=== PATIENT | female | born 1940 | race Caucasian/White ===

== ENCOUNTER → 2016-05-18 | Day surgery (SDC) | payer OTHER, MEDICARE ==
[2016-05-08 07:55] VITALS: Ht 163.8 cm; Wt 72.7 kg
[~2016-05-18] VITALS: Ht 163.8 cm; Wt 72.7 kg
[~2016-05-18] MED LIST: 500ML BSS 0.3ML EPI 1:1000PF IRRIG ONE; ACETAMINOPHEN 325 MG TAB PO PRN; AMVISC PLUS 0.8ML SYRINGE INT OCU ONE; ASPCH81X PO; ATOR10TA88 PO; ATROPINE SULFATE 0.1 MG/ML 5ML SYR IV PRN; BRIMONIDINE TART 0.2% OP SOLN PER DROP CHARGE ONE; BSS FLUSH ONE; CALC-51 PO; CLR10 PO; ENDOCOAT 0.85ML SYRINGE INT OCU ONE; EpHEDrine SULFATE INJ 50 MG/ML AMP IV PRN; EpINEphrine INJ 1MG/ML AMP 1 MG/ML AMP ONE; LACTATED RINGER'S 1000ML 500 ML IV SCH; LIDOCAINE 4% OP SOLN DROP CHARGE ONE; LIDOCAINE 4% OP SOLN DROP CHARGE OPR SCH; LIDOCAINE HCL 1% MPF 2 ML VIAL ONE; MIDAZOLAM HCL 1 MG/ML 2ML VIAL ONE; MOXIFLOXACIN OPH SOLN PER DROP CHARGE ONE; MULT-506 PO; OMEG10007 PO; POVIDONE-IODINE OP SOLN 30 ML BTL ONE; PROPARACAINE 0.5% OP SOLN PER DROP CHARGE OPR SCH; PROPARACAINE HCL 0.5% OP SOLN 15 ML BTL OPR ONE; RALO60TA12 PO; TOBRAMYCIN/DEXAMETHASONE OPH OINT PER APPLN CHARGE ONE; VITAMIN D PO
[2016-05-18] MEDS: PHENYLEPHRINE HCL 2.5% OP SOLN PER DROP CHARGE OPR SCH ×2 (07:16→07:21)
[2016-05-18] MEDS: TROPICAMIDE 1% OP SOLN PER DROP CHARGE OPR SCH ×2 (07:17→07:22)
[2016-05-18] MEDS: CYCLOPENTOLATE HCL 1% OP SOLN PER DROP CHARGE OPR SCH ×2 (07:18→07:23)
[2016-05-18] MEDS: KETOROLAC 0.5% OP SOLN PER DROP CHARGE OPR SCH ×2 (07:19→07:24)
[2016-05-18] MEDS: MOXIFLOXACIN OPH SOLN PER DROP CHARGE OPR SCH ×2 (07:20→07:35)
--- NOTE | 2016-05-18 07:32 | History & Physical Bridge - [place] ---
H&P Re-Evaluation Bridge Note: I have examined the patient, reviewed the History & Physical and in the interval since the performance of the History & Physical I have noted the following changes of clinical significance: No changes noted
[2016-05-18 08:35] VITALS: BP 148/88; PULSE 74; TEMP 36.2; O2SAT 97
--- NOTE | 2016-05-18 08:36 | Discharge Instructions-SurgCtr ---
Discharge Instructions Visit Reason for Visit: Right Cataract Eye Discharge Discharge Diagnosis / Problem: cataract right eye Discharge Goals Goal(s): Improve function Activity Recommendations Activity Limitations: resume your previous activity Lifting Limitations: no more than 5 pounds Anesthesia . Post Anesthesia Instructions: If you have had General Anesthesia or IV Sedation: * Do not drive today. * Resume driving when surgeon permits. * Do not make important decisions or sign legal documents today. * Call surgeon for: 1. Temperature elevations greater than 101 degrees F. 2. Uncontrollable pain. 3. Excessive bleeding. 4. Persistent nausea and vomiting. 5. Medication intolerance (nausea, vomiting or rash). * For nausea and vomiting use only clear liquids such as: tea, soda, bouillon until nausea subsides, then gradually increase diet as tolerated. * If you have any concerns or questions, call your surgeon's office. If physician is unavailable and it is an emergency, call 911 or go to the nearest emergency room. . Instructions / Follow-Up Instructions / Follow-Up ACTIVITY RECOMMENDATIONS: * Light activities * You may walk outside, read, watch television. * Mild irritation and blurred vision are common for the first few days, redness around the white part of the eye is common. MEDICATIONS: Resume previous medications unless instructed otherwise by your surgeon. Eye drops (today and tomorrow): Cipro - one drop in operative eye every 2 hours while awake Prednisolone 1% - one drop in operative eye every 2 hours while awake Ilevro - one drop operative eye 1 times daily SPECIAL CARE INSTRUCTIONS: * If any problems or concerns, please call Dr. Puente's office at . * Keep plastic shield taped over eye to sleep at night. * Keep plastic shield taped over eye except to administer eye drops. * Keep plastic shield on until office visit the following day. FOLLOW UP VISIT: Follow-up with Dr. Puente in the [place] office as scheduled. If not already scheduled, please call the office at . Diet Recommendations Home Diet: no limitations Procedures Procedures Performed: Right Cataract Phacoemulsification With Intraocular Lens; Toric Lens Medical Emergencies . Who to Call and When: Medical Emergencies: If at any time you feel your situation is an emergency, please call 911 immediately. . Non-Emergent Contact Non-Emergency issues call your: [facility] . . "Provider Documentation" section prepared by Jhonny Puente.
--- NOTE | 2016-05-18 08:36 | [facility] Post Operative Brief Note ---
Immediate Operative Summary Operative Date May 18, 2016. Pre-Operative Diagnosis Cataract Right Eye Post-Operative Diagnosis Same Procedure(s) Performed Right Cataract Phacoemulsification With Intraocular Lens; Toric Lens Surgeon Dr. Puente Home Health Outreach Coordinator Surgeon(s) None Estimated Blood Loss 0 Findings cataract right eye Specimens 0 Complication(s) None Disposition Recovery Room / PACU
--- NOTE | 2016-05-18 08:41 | Anesthesia Progress Nt - [facility] ---
Anesthesia Post Op Note Date & Time May 18, 2016 at 08:41 Vital Signs Pain Intensity: 0 Vital Signs Past 12 Hours Date Time Temp Pulse Resp B/P Pulse Ox O2 Delivery O2 Flow Rate FiO2 05/18/16 08:35 36.2 74 16 148/88 97 Room Air 05/18/16 08:06 73 16 168/98 96 05/18/16 07:59 72 16 186/95 95 05/18/16 07:11 36.3 76 16 148/94 96 Room Air Notes Mental Status: alert / awake / arousable, participated in evaluation Pt Amnestic to Procedure: Yes Nausea / Vomiting: adequately controlled Pain: adequately controlled Airway Patency, RR, SpO2: stable & adequate BP & HR: stable & adequate Hydration State: stable & adequate Anesthetic Complications: no major complications apparent
--- NOTE | 2016-05-18 09:03 | OPERATIVE REPORT ---
DATE OF OPERATION: 05/18/2016 PREOPERATIVE DIAGNOSIS: Cataract, right eye. POSTOPERATIVE DIAGNOSIS: Same. PROCEDURE PERFORMED: Phacoemulsification cataract extraction with Toric intraocular lens placement with the assistance of femtosecond laser right eye. COMPLICATIONS: None. ESTIMATED BLOOD LOSS: None. ANESTHESIA: Local with sedation. After informed consent was obtained in the holding area, the patient was first taken to the femtosecond laser room where the patient's right eye was docked with the laser. The laser was then used to make the primary incision at the 9 o'clock position of the patient's right eye, as well as the capsulorrhexis and prechop of the lens. Once this was completed, the patient was taken to the operating room where cardiac monitoring leads and oxygen by nasal cannula was administered by anesthesia. Gentle IV sedation was given, and the patient's right eye was prepped and draped in the usual sterile fashion. A wire lid speculum was placed in the right eye and the operating microscope was swung into position. Using 0.12 forceps and a supersharp blade, a paracentesis port was made at the 11 o'clock position of the patient's right eye. 1% nonpreserved lidocaine was then injected into the anterior chamber for anesthesia. A Alexei spatula was then used to enter the primary incision at the 9 o'clock position of the patient's right eye. Amvisc was then injected underneath the EndoCoat and the capsulorrhexis was removed with Utrata forceps. BSS on a hydrodissection cannula was then used to hydrodissect the lens nucleus away from the capsular bag. The phacoemulsification handpiece was then used in a stop and chop fashion to remove the lens nucleus. The irrigation-aspiration handpiece was then used to remove the residual cortical material. The eye was then filled with Amvisc and an ARTEMIO ZCT 150, 20.0 Diopter intraocular lens was injected into the capsular bag. The primary incision was hydrated and the irrigation-aspiration handpiece was used to remove the residual viscoelastic material from the eye and from underneath the lens. At the conclusion of viscoelastic material removal, the lens was aligned along the 9 degree axis of the patient's right eye. The wounds were noted to be watertight. The wire lid speculum was removed from the eye. Vigamox, brimonidine and TobraDex ointment were placed on the eye and the eye was shielded. The patient tolerated the procedure well and was taken to recovery area in stable condition. I attest to the content of the Intraoperative Record and any orders documented therein. Any exceptions are noted below. MTDD
== END | disposition home or self-care (01) ==
LOC: X.SURG 06:49
PROVIDERS: ATTEND Ophthalmology
DX: H26.9 Unspecified cataract (principal); E66.9 Obesity, unspecified; Z90.710 Acquired absence of both cervix and uterus; Z98.49 Cataract extraction status, unspecified eye; Z87.891 Personal history of nicotine dependence

== ENCOUNTER → 2017-02-25 | Outpatient (CLI) | payer OTHER, MEDICARE ==
[~2017-02-25] MED LIST changes: -500ML BSS 0.3ML EPI 1:1000PF IRRIG ONE; -ACETAMINOPHEN 325 MG TAB PO PRN; -AMVISC PLUS 0.8ML SYRINGE INT OCU ONE; -ATROPINE SULFATE 0.1 MG/ML 5ML SYR IV PRN; -BRIMONIDINE TART 0.2% OP SOLN PER DROP CHARGE ONE; -BSS FLUSH ONE; -ENDOCOAT 0.85ML SYRINGE INT OCU ONE; -EpHEDrine SULFATE INJ 50 MG/ML AMP IV PRN; -EpINEphrine INJ 1MG/ML AMP 1 MG/ML AMP ONE; -LACTATED RINGER'S 1000ML 500 ML IV SCH; -LIDOCAINE 4% OP SOLN DROP CHARGE ONE; -LIDOCAINE 4% OP SOLN DROP CHARGE OPR SCH; -LIDOCAINE HCL 1% MPF 2 ML VIAL ONE; -MIDAZOLAM HCL 1 MG/ML 2ML VIAL ONE; -MOXIFLOXACIN OPH SOLN PER DROP CHARGE ONE; -POVIDONE-IODINE OP SOLN 30 ML BTL ONE; -PROPARACAINE 0.5% OP SOLN PER DROP CHARGE OPR SCH; -PROPARACAINE HCL 0.5% OP SOLN 15 ML BTL OPR ONE; -TOBRAMYCIN/DEXAMETHASONE OPH OINT PER APPLN CHARGE ONE
--- NOTE | 2017-02-25 14:35 | MAMMOGRAPHY REPORT ---
BILATERAL DIGITAL SCREENING MAMMOGRAM TOMOSYNTHESIS WITH CAD: 02/25/2017 CLINICAL HISTORY: Routine screening. Patient has no complaints. TECHNIQUE: Breast tomosynthesis in addition to standard 2D mammography was performed. Current study was also evaluated with a Computer Aided Detection (CAD) system. COMPARISON: Comparison is made to exams dated: 02/24/2016 mammogram, 02/20/2015 mammogram, 4 mammogram, 02/17/2013 mammogram, 02/17/2012 mammogram, and 02/13/2011 mammogram - [facility]. BREAST COMPOSITION: There are scattered areas of fibroglandular density in both breasts. FINDINGS: No suspicious masses, calcifications, or areas of architectural distortion are noted in ei ther breast. There has been no significant interval change compared to prior exams. IMPRESSION: ACR BI-RADS CATEGORY 1: NEGATIVE There is no mammographic evidence of malignancy. A 1 year screening mammogram is recommended. The pa tient will receive written notification of the results. Approximately 10% of breast cancers are not detected with mammography. A negative mammographic report should not delay biopsy if a clinically suggestive mass is present. Brunilda Key M.D. ah/:02/25/2017 12:05:33 Pricing Coordinator: Gi ONTIVEROS(Timbo)(M), [facility] letter sent: Normal 1/2 BI-RADS Code: ACR BI-RADS Category 1: Negative
== END | disposition home or self-care (01) ==
LOC: C.MAMM 09:17
PROVIDERS: ATTEND Family Medicine
DX: Z12.31 Encounter for screening mammogram for malignant neoplasm of breast (principal)

== ENCOUNTER → 2017-04-19 | Outpatient (CLI) | payer OTHER, MEDICARE ==
[~2017-04-19] MED LIST changes: +ATOR10TA82 PO; -ATOR10TA88 PO; -RALO60TA12 PO; +RALO60TA30 PO
== END | disposition home or self-care (01) ==
LOC: C.MAMM 09:37
PROVIDERS: ATTEND Physician Assistant
DX: M81.0 Age-related osteoporosis without current pathological fracture (principal); M85.89 Other specified disorders of bone density and structure, multiple sites

== ENCOUNTER 2021-07-25 15:48 | Inpatient (IN) ==
[2021-07-25 17:04] LABS: INR 0.9 (0.9-1.1); Partial Thromboplastin Time 27.6 Seconds (21.0-31.0); Prothrombin Time 9.8 Seconds (9.0-12.0)
[2021-07-25 17:14] LABS: Alanine Aminotransferase 18 U/L (7-52); Albumin Globulin Ratio 1.2 (0.9-2); Alkaline Phosphatase 67 U/L (34-104); Anion Gap 9 (3-11); Aspartate Aminotransferase 27 U/L (13-39); BUN Creatinine Ratio 19.5 (10-20); Blood Urea Nitrogen 15 mg/dl (6-23); Calcium 9.9 mg/dl (8.5-10.1); Carbon Dioxide 26 mmol/L (21-32); Chloride 103 mmol/L (98-107); Creatinine Clr Calc Pharmacy 50.3 ml/min; Est GFR (African American) 84.5 ml/min; Est GFR (Non-African American) 72.9 ml/min; Globulin 3.3 gm/dl (2.5-4.0); Glucose 117 mg/dl (70-99(Fasting)); Potassium 4.2 mmol/L (3.5-5.1); Sodium 138 mmol/L (136-145); Total Protein 7.3 gm/dl (6.0-8.3)
[2021-07-25 17:16] LABS: Troponin I < 0.03 ng/ml (0-0.04)
[2021-07-25 17:59] LABS: Basophils # (auto) 0.03 K/uL (0-0.2); Basophils % (auto) 0.3 %; Eosinophils # (auto) 0.01 K/uL (0-0.5); Eosinophils % (auto) 0.1 %; Hematocrit (blood only) 45.5 % (37-47); Hemoglobin 15.5 g/dL (12.0-16.0); Immature Granulocytes # (auto) 0.05 K/uL (0.00-0.02); Immature Granulocytes % (auto) 0.5 %; Lymphocytes # (auto) 1.19 K/uL (1.2-3.4); Lymphocytes % (auto) 12.4 %; Mean Corpuscular Hemoglobin 34.8 pg (25-34); Mean Corpuscular Hgb Conc 34.1 g/dL (32-36); Mean Platelet Volume 10.8 fL (7.4-10.4); Monocytes # (auto) 1.01 K/uL (0.11-0.59); Monocytes % (auto) 10.5 %; Neutrophils # (auto) 7.29 K/uL (1.4-6.5); Neutrophils % (auto) 76.2 %; Platelet Count 140 K/uL (130-400); RDW Standard Deviation 48.7 fL (36.4-46.3); Red Blood Count 4.46 M/uL (4.2-5.4); White Blood Count 9.58 K/uL (4.8-10.8)
--- NOTE | 2021-07-25 18:14 | XRay Report ---
SINGLE VIEW CHEST CLINICAL HISTORY: Dyspnea. FINDINGS: An AP, portable, upright chest radiograph is obtained. No prior studies are available for c omparison at the time of dictation. The examination is mildly degraded by portable technique and sergio ent rotation. The heart is mildly enlarged noting atherosclerotic calcification of the thoracic aort a. The pulmonary vasculature is noncongested. Nonspecific interstitial thickening is likely chronic. There is mild left basilar atelectasis. No airspace consolidation or large pleural effusion is identi fied. No pneumothorax is seen. The skeletal structures are osteopenic. The bony thorax is grossly int act. IMPRESSION: Mild cardiomegaly with no acute cardiopulmonary abnormality. ACT 112: Negative or not required by law. Electronically signed by: Ad Dean M.D. 07/25/2021 6:13 PM
[2021-07-25] MEDS ORDERED: OPTIRAY 320 125ml IV ONE (18:16)
[2021-07-25] MEDS ORDERED: Heparin IV Adult Wt-Based Standard WITH Bolus Protocol IV STA (18:25)
--- NOTE | 2021-07-25 18:30 | Emergency Department Note ---
Impression & Plan Pulmonary embolism, DVT (deep venous thrombosis) ED Provider Note NAME: INEZ NYE AGE: 80 SEX: F : 1940 ARRIVES VIA: Walk-In INFORMANT: Patient, ED PROVIDER(S): Agustín Davis DO CHIEF COMPLAINT: Shortness of breath HPI: The patient is an 80-year-old female who presented to the emergency department for an evaluation of shortness of breath. The patient has been noticing shortness of breath with exertion. She started noticing right lower extremity swelling over the course of the last few weeks. This became worsened and she went to see her family doctor today. She had an ultrasound done in the office it was positive for a DVT. She told her primary care physician that she was experiencing shortness of breath with exertion and was sent to the emergency department for a CT the chest as well as further evaluation. The patient states that she has no history of DVT in the past. She has no history of PE. She does not currently take blood thinners. She states that she has noticed no chest pain. She notices no abdominal pain. She has a history of basal cell carcinoma but no history of other cancer otherwise. She states that she has had no trauma. She has been trying to elevate the leg and only noticed the symptoms have been increasing. The patient states that symptoms worsen with any exertion and do relieve with some rest. ROS: See above HPI for pertinent positives & negatives. A total of 10 systems reviewed and were otherwise negative. PAST MEDICAL HISTORY: See Below PAST SURGICAL HISTORY: See Below FAMILY HISTORY: See Below SOCIAL HISTORY: See Below HOME MEDICATIONS: See Below ALLERGIES: See Below VITALS: See Below PHYSICAL EXAMINATION: GENERAL: Patient is awake alert in no acute distress patient is resting comfortably and showing no signs of anxiety EYES: The conjunctivae are clear. The pupils are round and reactive. EARS, NOSE, MOUTH AND THROAT: The nose is without any evidence of any deformity. NECK: The neck is nontender and supple. RESPIRATORY: Normal respiratory effort is noted there is no evidence of wheezing rhonchi or rales CARDIOVASCULAR: Regular rate and rhythm noted there no murmurs rubs or gallops normal S1 normal S2. GASTROINTESTINAL: The abdomen is soft. Abdomen is nontender. MUSCULOSKELETAL/EXTREMITIES: There is no evidence of gross deformity full range of motion is noted in the hips and shoulders. SKIN: There is erythema as well as pedal edema on the right leg. There is calf tenderness in the right leg. Pulses are symmetric in both feet. NEUROLOGIC: Patient is awake alert and oriented x3 MEDICAL DECISION MAKING: The patient is an 80-year-old female who presented to the emergency department for an evaluation of shortness of breath with exertion. The patient was anya gnosed with a DVT on her right leg and the primary care physician's office today. Her history and physical exam do appear to be consistent with a DVT. She has no history of venous thromboembolic disease in the past. I discussed patient's laboratory and radiographic studies with her. CT the chest was obtained in the emergency department and appears to be consistent with bilateral PE with significant clot burden. The patient was started on IV heparin in the emergency department. She was reevaluated. [facility] have agreed to evaluate the patient in the emergency department for further management and disposition. Triage Nursing notes reviewed. Prior medical records reviewed Vital Signs: reviewed and remarkable for elevated blood pressure. Differential diagnosis: Reactive airway disease, pneumonia, pneumothorax, COPD, CHF, infections, cardiac ischemia, pulmonary embolism, musculoskeletal, gastrointestinal, as well as other pathologies. ER treatment provided: See below Diagnostics interpreted by me: ECG: EKG was obtained in the emergency department. My interpretation is sinus rhythm at 91 bpm. PVCs were noted. Inferior Q waves were noticed. There is diffuse ST segment abnormalities noted. No previous tracing was available for comparison. Cardiac Monitoring: An order was placed for continuous cardiac monitoring. The monitor shows a rate of 79 bpm with sinus rhythm. Laboratory studies: As stated above and show below. Imaging studies: See below Consultation(s): I discussed this case with Dr. Schroeder who [facility] He will evaluate the patient in the emergency department. ED COURSE: Procedures: none PDMP:reviewed and no issues Critical Care: I have personally spent greater than 45 minutes of critical care time in the direct management of this patient. This includes bedside care, interpretation of diagnostic studies, and testing, discussion with consultants, patient, and family members, and other required patient management activities. This 45 minutes is in excess of all separately billable procedures. Past Med/Surg History Medical History Basal cell carcinoma High cholesterol Hypertension Surgical History H/O: hysterectomy Social History Smoking Status: Former smoker Feels Safe at Home: Yes Allergies Allergies Allergy/AdvReac Type Severity Reaction Status Date / Time No Known Allergies Allergy Unverified 05/18/16 07:10 Home Meds Home Medications Medication Instructions Recorded Confirmed ASPIRIN (ASPIRIN CHEWABLE) 81 mg PO QAM #0 05/08/16 ATORVASTATIN (LIPITOR) 5 mg PO QPM #0 tab 05/08/16 CALCIUM CARBONATE-VITAMIN D 1 tab PO QAM #0 05/08/16 (CALCIUM) Fish Oil (Lamar-3) 1 cap PO QAM #0 cap 05/08/16 Loratadine (Claritin) 10 mg PO DAILY PRN #0 tab 05/08/16 Multivitamin 1 tab PO QAM #0 tab 05/08/16 RALOXIFENE HCL (EVISTA) 60 mg PO QPM #0 tab 05/08/16 VITAMIN D 1 tab PO QAM #0 05/08/16 Results & Data (ED) Vital Signs Vital Signs - 24 hr 07/25/21 16:02 07/25/21 16:07 Temperature 36.8 C Temperature Source Temporal Artery Scan Pulse Rate 79 Pulse Rhythm Regular Pulse Strength Normal Respiratory Rate 20 Respiratory Effort / Characteristics Non-Labored Spontaneous Non-Labored Spontaneous Respiratory Depth Normal Respiratory Pattern Regular Blood Pressure 172/91 H Blood Pressure Mean 118 Blood Pressure Position Sitting Pulse Oximetry 95 Oxygen Delivery Method Room Air Room Air Sepsis Recent Fever Within 48 Hours No Sepsis New/Unexplained Change in Mental Status N/A Sepsis Action Taken by Nursing No Action Required Home Medications Current Medication List: was personally reviewed by me Laboratory Data Attestation: I reviewed the patient's lab results. Result diagrams: 07/25/21 16:46 07/25/21 16:46 Lab Results 07/25/21 07/25/21 07/25/21 Range/Units 16:46 16:46 16:46 WBC 9.58 (4.8-10.8) K/uL RBC 4.46 (4.2-5.4) M/uL Hgb 15.5 (12.0-16.0) g/dL Hct 45.5 (37-47) % MCV 102.0 H (80-100) fL MCH 34.8 H (25-34) pg MCHC 34.1 (32-36) g/dL RDW Std Deviation 48.7 H (36.4-46.3) fL RDW Coeff of Dean 13.0 (11.5-14.5) % Plt Count 140 (130-400) K/uL MPV 10.8 H (7.4-10.4) fL Immature Gran % (Auto) 0.5 % Neut % (Auto) 76.2 % Lymph % (Auto) 12.4 % Pierce % (Auto) 10.5 % Eos % (Auto) 0.1 % Baso % (Auto) 0.3 % Neut # (Auto) 7.29 H (1.4-6.5) K/uL Lymph # (Auto) 1.19 L (1.2-3.4) K/uL Pierce # (Auto) 1.01 H (0.11-0.59) K/uL Eos # (Auto) 0.01 (0-0.5) K/uL Baso # (Auto) 0.03 (0-0.2) K/uL Immature Gran # (Auto) 0.05 H (0.00-0.02) K/uL PT 9.8 (9.0-12.0) Seconds INR 0.9 (0.9-1.1) APTT 27.6 (21.0-31.0) Seconds PTT Ratio 1.0 Sodium 138 (136-145) mmol/L Potassium 4.2 (3.5-5.1) mmol/L Chloride 103 (98-107) mmol/L Carbon Dioxide 26 (21-32) mmol/L Anion Gap 9 (3-11) BUN 15 (6-23) mg/dl Creatinine 0.77 (0.6-1.2) mg/dl Est Cr Clr Drug Dosing 50.3 ml/min Est GFR ( Amer) 84.5 ml/min Est GFR (Non-Af Amer) 72.9 ml/min BUN/Creatinine Ratio 19.5 (10-20) Glucose 117 H (70-99(Fasting)) mg/dl Calcium 9.9 (8.5-10.1) mg/dl Magnesium 2.0 (1.7-2.4) mg/dl Total Bilirubin 1.0 (0.2-1.0) mg/dl AST 27 (13-39) U/L ALT 18 (7-52) U/L Alkaline Phosphatase 67 (34-104) U/L Troponin I < 0.03 (0-0.04) ng/ml Total Protein 7.3 (6.0-8.3) gm/dl Albumin 4.0 (3.4-5.0) gm/dl Globulin 3.3 (2.5-4.0) gm/dl Albumin/Globulin Ratio 1.2 (0.9-2) Administered Medications Discontinued Medications Ioversol (Optiray 320 125ml) 120 ml IV ONCE ONE Stop: 07/25/21 18:17 Last Admin: 07/25/21 18:17 Dose: 120 ml Documented by: [id number] Imaging Data Radiologist's Impression: Chest X-Ray 07/25/21 16:08 SINGLE VIEW CHEST CLINICAL HISTORY: Dyspnea. FINDINGS: An AP, portable, upright chest radiograph is obtained. No prior studies are available for comparison at the time of dictation. The examination is mildly degraded by portable technique and patient rotation. The heart is mildly enlarged noting atherosclerotic calcification of the thoracic aorta. The pulmonary vasculature is noncongested. Nonspecific interstitial thickening is likely chronic. There is mild left basilar atelectasis. No airspace consolid ation or large pleural effusion is identified. No pneumothorax is seen. The skeletal structures are osteopenic. The bony thorax is grossly intact. IMPRESSION: Mild cardiomegaly with no acute cardiopulmonary abnormality. ACT 112: Negative or not required by law. Electronically signed by: Ad Dean M.D. 07/25/2021 6:13 PM Chest CTA 07/25/21 16:09 CT ANGIOGRAM OF THE CHEST CLINICAL HISTORY: Dyspnea. COMPARISON STUDY: Chest x-ray dated 07/25/2021. TECHNIQUE: Following the IV administration of 120 cc of Optiray 320, CT angiogram of the chest was performed from the upper abdomen to the thoracic inlet utilizing the pulmonary embolus protocol. Images are reviewed in the axial, sagittal, and coronal planes. 3-D MIPS images are created and assessed. IV contrast was administered without complication. A dose lowering technique was utilized adhering to the principles of ALARA. CT DOSE: 244.58 mGy.cm FINDINGS: Thyroid: Imaged portions of the thyroid gland are normal in size and attenuation. Thoracic aorta: There is atherosclerotic calcification of the thoracic aorta, which is normal in caliber and demonstrates 4-vessel variant arch anatomy. No dissection is seen. Pulmonary vasculature: The pulmonary trunk is normal in caliber. There is saddle pulmonary embolus, with extensive thrombus within the right and left main pulmonary arteries. Thrombus present within segmental and subsegmental branches in all pulmonary lobes. The greatest volume of thrombus is seen within the left upper and left lower lobe pulmonary arteries. Heart: The heart is mildly enlarged and without pericardial effusion. The coronary arteries are densely calcified. Lungs and pleural spaces: There is no airspace consolidation typical for pneumonia or pleural effusion. Dependent atelectasis is present at both lung bases. A 1.8 cm irregular opacity in the anterior left lower lobe is seen on image #73. There are scattered calcified granulomas. The trachea and central airways are clear. Mediastinum: There is no mediastinal lymphadenopathy. Ella: Clear. Axillae: There is no axillary lymphadenopathy. Upper abdomen: There is a moderate hiatal hernia. The liver is steatotic. Skeletal structures: The skeletal structures are osteopenic. There is a chronic- appearing compression deformity of T12. Degenerative change and hyperkyphosis is noted in the thoracic spine. No lytic or blastic bony lesions are seen. IMPRESSION: 1. Saddle pulmonary embolus with extensive bilateral pulmonary emboli as detailed above. 2. There is no airspace consolidation typical for pneumonia or pleural effusion. 3. A 1.8 cm irregular density in the anterior left lower lobe likely resents atelectasis. A 3-4 month follow-up chest CT is recommended to document resolution. 4. Mild cardiomegaly. 5. Hepatic steatosis. 6. Moderate hiatal hernia. 7. Additional findings as above. ACT 112: Negative or not required by law. Electronically signed by: Ad Dean M.D. 07/25/2021 6:34 PM Discharge Plan Visit Data Chief Complaint: Shortness of Breath/Dyspnea Stated Complaint: BLOOD CLOT ON ULTRA SOUND ED Provider: Agustín Davis Discharge Problem: Pulmonary embolism, DVT (deep venous thrombosis) Patient Disposition: Being Evaluated by Hospitalist Forms Stand Alone Forms: My [employer] Prescriptions Prescriptions: No Action ATORVASTATIN (LIPITOR) 10 MG tablet 5 mg PO QPM Qty: 0 RF: 0 CALCIUM CARBONATE-VITAMIN D (CALCIUM) 1 TAB tablet 1 tab PO QAM Qty: 0 RF: 0 Fish Oil (Lamar-3) 1 EA capsule 1 cap PO QAM Qty: 0 RF: 0 Loratadine (Claritin) 10 MG tablet 10 mg PO DAILY PRN (Reason: PRN) Qty: 0 RF: 0 Multivitamin tablet 1 tab PO QAM Qty: 0 RF: 0 RALOXIFENE HCL (EVISTA) 60 MG tablet 60 mg PO QPM Qty: 0 RF: 0 VITAMIN D 1 tab PO QAM Qty: 0 RF: 0 ASPIRIN (ASPIRIN CHEWABLE) 81 MG CHEWABLE TAB 81 mg PO QAM Qty: 0 RF: 0 Referrals Referrals: Phyllis Oleary PA-C [Primary Care Provider] - Discharge Problem: Pulmonary embolism Qualifiers: Pulmonary embolism type: unspecified Chronicity: acute Acute cor pulmonale presence: unspecified Qualified Code(s): I26.99 - Other pulmonary embolism without acute cor pulmonale DVT (deep venous thrombosis) Qualifiers: DVT location: lower extremity Affected thrombotic vein of extremity: unspecified vein of extremity Chronicity: acute Laterality: right Qualified Code(s): I82.401 - Acute embolism and thrombosis of unspecified deep veins of right lower extremity
--- NOTE | 2021-07-25 18:35 | CT Scan Report ---
CT ANGIOGRAM OF THE CHEST CLINICAL HISTORY: Dyspnea. COMPARISON STUDY: Chest x-ray dated 07/25/2021. TECHNIQUE: Following the IV administration of 120 cc of Optiray 320, CT angiogram of the chest was pe rformed from the upper abdomen to the thoracic inlet utilizing the pulmonary embolus protocol. Images are reviewed in the axial, sagittal, and coronal planes. 3-D MIPS images are created and assessed. I V contrast was administered without complication. A dose lowering technique was utilized adhering to the principles of ALARA. CT DOSE: 244.58 mGy.cm FINDINGS: Thyroid: Imaged portions of the thyroid gland are normal in size and attenuation. Thoracic aorta: There is atherosclerotic calcification of the thoracic aorta, which is normal in denis bárbara and demonstrates 4-vessel variant arch anatomy. No dissection is seen. Pulmonary vasculature: The pulmonary trunk is normal in caliber. There is saddle pulmonary embolus, w ith extensive thrombus within the right and left main pulmonary arteries. Thrombus present within seg mental and subsegmental branches in all pulmonary lobes. The greatest volume of thrombus is seen with in the left upper and left lower lobe pulmonary arteries. Heart: The heart is mildly enlarged and without pericardial effusion. The coronary arteries are dense ly calcified. Lungs and pleural spaces: There is no airspace consolidation typical for pneumonia or pleural effusio n. Dependent atelectasis is present at both lung bases. A 1.8 cm irregular opacity in the anterior le ft lower lobe is seen on image #73. There are scattered calcified granulomas. The trachea and central airways are clear. Mediastinum: There is no mediastinal lymphadenopathy. Ella: Clear. Axillae: There is no axillary lymphadenopathy. Upper abdomen: There is a moderate hiatal hernia. The liver is steatotic. Skeletal structures: The skeletal structures are osteopenic. There is a chronic-appearing compression deformity of T12. Degenerative change and hyperkyphosis is noted in the thoracic spine. No lytic or blastic bony lesions are seen. IMPRESSION: 1. Saddle pulmonary embolus with extensive bilateral pulmonary emboli as detailed above. 2. There is no airspace consolidation typical for pneumonia or pleural effusion. 3. A 1.8 cm irregular density in the anterior left lower lobe likely resents atelectasis. A 3-4 month follow-up chest CT is recommended to document resolution. 4. Mild cardiomegaly. 5. Hepatic steatosis. 6. Moderate hiatal hernia. 7. Additional findings as above. ACT 112: Negative or not required by law. Electronically signed by: Ad Dean M.D. 07/25/2021 6:34 PM
[2021-07-25] MEDS ORDERED: HEPARIN SOD (PORCINE) 1000 UNIT/ML IV ONE ×2 (18:41→19:30)
[2021-07-25] MEDS: HEPARIN SODIUM/DEXTROSE 25,000 UNITS/500 ML BAG IV SCH (18:59)
--- NOTE | 2021-07-25 19:24 | History & Physical Report ---
Date of Service July 25, 2021 History of Present Illness Primary Care Provider: Phyllis Oleary PA-C Patient is 80-year-old female with past medical history of who presents today with shortness of breath and DVT identified on outpatient ultraso und. She started noticing right lower extremity swelling over the last few weeks that has been progressing, therefore she saw her family doctor today. U/S done in office was positive for a DVT, with ongoing shortness of breath there was concern for PE, so she was directed to come to the ED for further evaluation. The patient states that she has no history of DVT in the past. She has no history of PE. She does not currently take blood thinners. She states that she has noticed no chest pain. She notices no abdominal pain. She has a history of basal cell carcinoma but no history of other cancer otherwise. She states that she has had no trauma. She has been trying to elevate the leg and only noticed the symptoms have been increasing. The patient states that symptoms worsen with any exertion and do relieve with some rest. On initial presentation to ED, patient hypertensive BP ---, otherwise vital signs within normal limits and stable, not hypoxic, not tachycardic. Routine labs to include CBC, coag panel, CMP within normal limits. COVID-19 ____. negative. CXR with mild cardiomegaly, chest CTA with Saddle pulmonary embolus with extensive bilateral pulmonary emboli Allergies Allergy/AdvReac Type Severity Reaction Status Date / Time No Known Allergies Allergy Unverified 05/18/16 07:10 Home Medications Medication Instructions Recorded Confirmed Type ASPIRIN (ASPIRIN CHEWABLE) 81 mg PO QAM #0 05/08/16 History ATORVASTATIN (LIPITOR) 5 mg PO QPM #0 tab 05/08/16 History CALCIUM CARBONATE-VITAMIN D 1 tab PO QAM #0 05/08/16 History (CALCIUM) Fish Oil ([place]-3) 1 cap PO QAM #0 cap 05/08/16 History Loratadine (Claritin) 10 mg PO DAILY PRN #0 tab 05/08/16 History Multivitamin 1 tab PO QAM #0 tab 05/08/16 History RALOXIFENE HCL (EVISTA) 60 mg PO QPM #0 tab 05/08/16 History VITAMIN D 1 tab PO QAM #0 05/08/16 History Past Med/Surg History Medical History Basal cell carcinoma High cholesterol Hypertension Surgical History H/O: hysterectomy Social History Smoking Status: Former smoker Feels Safe at Home: Yes Results & Data Results & Data ([facility]) Vital Signs (Past 12 Hours) Vital Signs Temp Pulse Resp BP Pulse Ox 07/25/21 16:02 36.8 C 79 20 172/91 H 95 PG Care Time/CCT Total # of Minutes Spent Total Time Spent with Patient: Total time spent is greater than 50% in coordination of care (as documented) at patient's floor/unit and/or counseling patient: Coding
--- NOTE | 2021-07-25 19:36 | History & Physical Report ---
Date of Service July 25, 2021 Assessment & Plan (1) Pulmonary embolism: Plan: Saddle PE on CTA. Despite this, PESI score is 80 (age only), making her low risk. Blood pressure, RR, and HR all stable. Only risk factor is increased sedentary lifestyle x 1 month. Not clear whether this did initiate with a sprained ankle or if the initial swelling was her DVT which propagated with time and less activity. - Started on heparin gtt in ED - Discussed with ICU -> May offer her thrombolysis. Admit to ICU. (2) Hypertension: Plan: BP in the ER was 170/90, transiently as high as 200/90. Likely from stress. - Hold lisinopril given large clot. - Can cautiously treat with PRN BP meds per ICU (3) High cholesterol: Plan: - Continue statin Plan: FULL CODE - Confirmed with patient and that she would want all life- saving measures. History of Present Illness Primary Care Provider: Phyllis Oleary PA-C 80yo F w/ hx of HTN and osteoporosis who presents with saddle PE. The patient reports that she stumbled and thought she sprained her right ankle about 1 month ago. The ankle was sore and slightly swollen at that time. Over the last month, she has tried to be less mobile, elevating and wrapping the ankle and using ice. However, instead of improving, she has had increasing swelling and a "pressure" sensation that has continued and worsened over the las t month. Over the last few days, the ankle and ng have become more swollen. No tenderness, no "pain" per the patient (though still with the pressure sensation). Over the last week, she has also noted increased shortness of breath, though no chest pain, no lightheadedness, no dizziness. No fevers/chills, no vomiting/nausea, no urinary issues or changes in bowel habits. In the ER, she was found to have a saddle PE. She denies any history of bleeding. No head surgeries in the past. No hx of ICH. No hx of GI bleeding. Allergies Allergy/AdvReac Type Severity Reaction Status Date / Time No Known Allergies Allergy Unverified 05/18/16 07:10 Home Medications Medication Instructions Recorded Confirmed Type ATORVASTATIN (LIPITOR) 10 mg PO QPM #0 tab 05/08/16 07/25/21 History CALCIUM CARBONATE-VITAMIN D 1 tab PO QAM #0 05/08/16 History (CALCIUM) Fish Oil ([place]-3) 1 cap PO QAM #0 cap 05/08/16 History Loratadine (Claritin) 10 mg PO DAILY PRN #0 tab 05/08/16 History Multivitamin 1 tab PO QAM #0 tab 05/08/16 History VITAMIN D 1 tab PO QAM #0 05/08/16 History lisinopril 20 mg tablet 20 mg PO QAM 07/25/21 07/25/21 History Past Med/Surg History Medical History (Updated 07/25/21 @ 19:40 by Clem Schroeder MD) Basal cell carcinoma High cholesterol Hypertension Surgical History H/O: hysterectomy Social History Smoking Status: Former smoker Feels Safe at Home: Yes Review of Systems Review of Systems: All systems reviewed & are unremarkable except as noted in HPI & below Physical Exam Constitutional: WD/WN, vitals as above Eyes: EOM intact bilaterally; no conjunctival abnormality ENMT: external ear and nose normal, oropharynx normal Neck: trachea midline, no thyromegaly normal visual inspection Respiratory: normal respiratory effort, lungs clear to auscultation no respiratory distress Cardiovascular: RRR, no murmur, no edema Gastrointestinal (Abdomen): Inspection/Auscultation: abdomen normal to inspection; abdomen not distended Musculoskeletal: no cyanosis or clubbing, extremities motor strength 5/5 Skin: no rashes, warm and dry Neurologic: moves all extremities and awake Psychiatric: Orientation: alert, oriented to person and cooperative Results & Data Results & Data ([facility]) Vital Signs (Past 12 Hours) Vital Signs Temp Pulse Resp BP Pulse Ox 07/25/21 16:02 36.8 C 79 20 172/91 H 95 Code Status & VTE Plan VTE Prophylaxis Plan VTE Prophylaxis will be ordered: Yes PG Care Time/CCT Total # of Minutes Spent Total Time Spent with Patient: Total time spent is greater than 50% in coordination of care (as documented) at patient's floor/unit and/or counseling patient: Coding Level of Care Code 49743 Initial Inpt Care Lvl 3 Diagnoses Pulmonary embolism I26.99 Acute cor pulmonale presence: unspecified Chronicity: acute Pulmonary embolism type: unspecified Hypertension I10 High cholesterol E78.00 (1) Pulmonary embolism Acute cor pulmonale presence: unspecified Chronicity: acute Pulmonary embolism type: unspecified Qualified Code(s): I26.99 - Other pulmonary embolism without acute cor pulmonale
[2021-07-25] MEDS ORDERED: ONDANSETRON INJ 2 MG/ML 2 ML VIAL IV PRN (20:49)
[2021-07-25] MEDS ORDERED: LORATADINE 10 MG PO PRN (20:49)
[2021-07-25] MEDS ORDERED: ACETAMINOPHEN 325 MG TAB PO PRN (20:49)
--- NOTE | 2021-07-25 21:26 | Critical Care Consultation ---
Date of Consultation July 25, 2021 Assessment & Plan (1) Admitted to intensive care unit: Reason Critically Ill: 80-year-old female with large pulmonary embolus with saddle component requiring close hemodynamic monitoring and possible need for thrombolysis. NEURO - * CAM ICU: NEGATIVE * Alcohol use: * Patient drinks 2-3 scotch drinks per evening. * Previously with mild alcohol use, but reports that over the last 2 years in regards to the COVID-19 pandemic, the patient admits to drinking 2-3 drinks per night which seems to help her relax in the evenings and get better sleep. She has not abstain from alcohol for any substantial amount of time over this past 2 years. She is uncertain of history of withdrawal symptoms. She admits that she does feel more relaxed in the evening after drink. * Patient not tachycardic upon arrival, but she is with hypertension. Did discuss minimizing alcohol use, however, in the situation, I do not feel that adding complete removal alcohol at this time is in the patient's best interests, particularly given her underlying catastrophic pulmonary em bolism. Was offered whiskey drink at night to help with symptoms. She feels as though this may help her relax more. In conversation, it is obvious the patient is asked about her current and recent diagnosis. In combination, I do feel that we will have better results with instituting nightly cocktail versus AWSS scale at this time. Will cerainly consider this pending patient's hospitalization course. CARDIAC/VASCULAR - * HTN: * Appears to be more anxiety related currently. * Would be cautious with abrupt drop in BP in the patient w/ large PE. * Consider low goff BB if necessary. * Will check AM Echo/BNP * Can likely continue w/ home BP Rx in AM. * EKG: SR w/ PACs @[address] change noted. QTc 425 ms. * Monitor on telemetry. RESPIRATORY - * Large PE w/ Saddle component: * Also noted to have RLE DVT today as well. * HR, Pulse Ox, BP stable. * Heparin gtt started. * No heart strain on CTA. * No leaked trops. * Continue w/ Heparin gtt for now. * TPA if she were to decompensate. GI/NUTRITION - * Progress diet as tolerated. RENAL/LYTES - * No significant electrolyte derangements. - * No concerns at this time. ENDO - * No h/o DM or thyroid Dz * BSGs per unit protocol. ISS --> gtt per unit policy. HEME - * Anticoagulated on Heparin gtt: * Monitor for s/s bleeding. ID - * No concerns for infectious contribution at this time. LINES/IV ACCESS - * PIVs x2 DVT PROPHYLAXIS - * Heparin gtt I have personally spent 35 minutes of critical care time in the direct management of this patient. This is a life/limb threatening event. This includes time spent evaluating patient, direct bedside care, chart review, placing orders, interpretation of diagnostic studies, discussion with consultants, patient, and family members, as well as other required patient management activities. This time is exclusive of all separately billable procedures, and teaching time and separate from and in addition to any other critical care service time. Thank you for allowing us to participate in the care of this patient. Please refer to my attending physician's documentation for any further recommendations. (2) Pulmonary embolism: (3) DVT (deep venous thrombosis): (4) High cholesterol: (5) Hypertension: (6) Alcohol use: History of Present Illness Attending Physician: Clem Schroeder MD History of Present Illness Patient is an 80-year-old female with a limited past medical history who presented to the emergency department from her primary care provider's office with new diagnosis of RIGHT lower extremity DVT with concerns for worsening shortness of breath and possible PE. Upon evaluation in the emergency department, CTA of the chest was obtained which demonstrated large PE with component of saddle embolus. Thankfully, patient without hypoxia. She is not tachycardic. She is not tachypneic. Troponin is not elevated. She was started on heparin drip in the emergency department. She is admitted to the ICU for ongoing management in the acute phase heparin titration with possible need for thrombolysis in the event of active decompensation. Upon evaluation in the ICU, the patient is awake, alert, and oriented. She states that she has had swelling to the RIGHT leg which has been worsening over the last month. She initially felt as though she might of twisted her ankle and has essentially been extremely limited in her ambulation for the last month or so. She has had worsening swelling of the leg from the knee down for which she was evaluated at her PCPs office today. Patient does note that over the last week, she has had shortness of breath with exertion alone. She denies any complaints of chest pain, palpitations, hemoptysis, dizziness, lightheadedness, nausea, or vomiting. Patient with no history of thromboembolic event in the past. She is not a smoker. No reported exogenous hormone therapies. No family history of known for DVT or PE. It should be noted that the patient admits to drinking 2-3 scotch drinks per evening. She reports that prior to the past 2 years, she drank sparingly. She admits that she has drank nearly every evening for the past 2 years and reports that this has been related to increasing stress in the setting of global pandemic. She has not quit drinking in the last 2 years. She is uncertain of any history of withdrawal symptoms in the past. She does state that the alcohol helps her to relax and sleep at night. Allergies Allergy/AdvReac Type Severity Reaction Status Date / Time No Known Allergies Allergy Unverified 05/18/16 07:10 Home Medications Medication Instructions Recorded Confirmed Type ATORVASTATIN (LIPITOR) 10 mg PO QPM #0 tab 05/08/16 07/25/21 History CALCIUM CARBONATE-VITAMIN D 1 tab PO QAM #0 05/08/16 History (CALCIUM) Fish Oil ([place]-3) 1 cap PO QAM #0 cap 05/08/16 History Loratadine (Claritin) 10 mg PO DAILY PRN #0 tab 05/08/16 History Multivitamin 1 tab PO QAM #0 tab 05/08/16 History VITAMIN D 1 tab PO QAM #0 05/08/16 History lisinopril 20 mg tablet 20 mg PO QAM 07/25/21 07/25/21 History Patient History Medical History Basal cell carcinoma High cholesterol Hypertension Surgical History H/O: hysterectomy Social History Smoking Status: Never smoker Second Hand Exposure: No; Hx Alcohol Use: Yes Alcohol type: hard liquor Hx Substance Use: No Preferred Language: [place] Communication Ability: Effective Wrist Liner Required: No Beliefs That Will Affect Care: None Current Living Situation: Spouse Feels Safe at Home: Yes Assistive Devices: Cane Review of Systems Review of Systems: A complete 10 point review of systems was reviewed with the patient with pertinent positives and negatives as per history of present illness. All else were negative. Physical Exam Physical Exam: VITAL SIGNS - Vital signs and nursing notes were reviewed. GENERAL - 80-year-old female appearing her stated age who is in no acute distress. Communicates well with provider and answers questions appropriately. HEAD - NC/AT. EYES - PERRL with EOMI bilaterally. Sclera anicteric. MOUTH/OROPHARYNX - Without perioral cyanosis. NECK - Neck with FROM. LUNGS - Chest wall symmetric without accessory muscle use, intercostals retractions, or central cyanosis. Normal vesicular breath sounds CTA B/L. No wheezes, rales, or rhonchi appreciated. CARDIAC - RRR with S1/S2. No murmur, rubs, or gallops appreciated. No reproducible tenderness to palpation appreciated over the anterior chest wall. ABDOMEN - Abdominal contour flat without pulsations or visible masses. BS normoactive all four quadrants. No tenderness, palpable masses, hepatosplenomegaly, or ascites noted. EXTREMITIES - No clubbing or peripheral cyanosis. Moderate edema noted to the RLE from the knee down. +3/5 radial and dorsalis pedis pulses palpated throughout. +5/5 strength noted in UE/LE bilaterally. NEUROLOGIC - Cranial nerves II through XII grossly intact. PSYCH - A&Ox3 and cooperates fully with examiner. Pt is very pleasant and interacts well with examiner. Results & Data Results & Data ([facility]) Vital Signs (Past 12 Hours) Vital Signs Temp Pulse Pulse Resp BP BP Pulse Ox 07/25/21 19:56 97 07/25/21 19:46 86 20 181/118 H 97 07/25/21 19:18 85 203/107 H 07/25/21 16:02 36.8 C 79 20 172/91 H 95 Coding Level of Care Code Critical Care 1st 30-74 mins Diagnoses Admitted to intensive care unit Z78.9 Pulmonary embolism I26.99 Acute cor pulmonale presence: unspecified Chronicity: acute Pulmonary embolism type: unspecified DVT (deep venous thrombosis) I82.401 Affected thrombotic vein of extremity: unspecified vein of extremity Chronicity: acute DVT location: lower extremity Laterality: right High cholesterol E78.00 Hypertension I10 Alcohol use Z72.89 Time Spent (min) 35 (1) DVT (deep venous thrombosis) Affected thrombotic vein of extremity: unspecified vein of extremity Chronicity: acute DVT location: lower extremity Laterality: right Qualified Code(s): I82.401 - Acute embolism and thrombosis of unspecified deep veins of right lower extremity (2) Pulmonary embolism Acute cor pulmonale presence: unspecified Chronicity: acute Pulmonary embolism type: unspecified Qualified Code(s): I26.99 - Other pulmonary embolism without acute cor pulmonale
[2021-07-25] MEDS ORDERED: LORATADINE 10 MG TAB PO PRN (21:27)
[2021-07-25] MEDS ORDERED: ICU PROTOCOL FOR HYPERGLYCEMIA PRN (21:30)
[2021-07-25] MEDS ORDERED: WHISKEY 1 DOSE PO ONE (21:45)
[2021-07-25] MEDS: ATORVASTATIN 10 MG TAB PO SCH (22:20)
[2021-07-26 01:10] LABS: Partial Thromboplastin Ratio 1.2; Partial Thromboplastin Time 34.1 Seconds (21.0-31.0)
[2021-07-26] MEDS ORDERED: HEPARIN SOD (PORCINE) 1000 UNIT/ML IV ONE (02:00)
[2021-07-26 05:22] LABS: Hematocrit (blood only) 39.8 % (37-47); Hemoglobin 13.7 g/dL (12.0-16.0); Mean Corpuscular Hemoglobin 34.6 pg (25-34); Mean Corpuscular Hgb Conc 34.4 g/dL (32-36); Mean Corpuscular Volume 100.5 fL (80-100); Mean Platelet Volume 10.2 fL (7.4-10.4); Platelet Count 125 K/uL (130-400); RDW Coefficient of Variation 12.9 % (11.5-14.5); RDW Standard Deviation 47.1 fL (36.4-46.3); Red Blood Count 3.96 M/uL (4.2-5.4)
[2021-07-26 05:54] LABS: BUN Creatinine Ratio 19.6 (10-20); Calcium 8.9 mg/dl (8.5-10.1); Creatinine Clr Calc Pharmacy 69.2 ml/min; Est GFR (African American) 102.1 ml/min; Est GFR (Non-African American) 88.1 ml/min; Magnesium 1.9 mg/dl (1.7-2.4); Phosphorus 3.6 mg/dl (2.5-4.9); Potassium 3.8 mmol/L (3.5-5.1)
--- NOTE | 2021-07-26 07:38 | Hospitalist Progress Note ---
Date of Service July 26, 2021 Assessment & Plan (1) Pulmonary embolism: Plan: Saddle pulmonary embolism CTA: Saddle pulmonary embolus with extensive bilateral pulmonary emboli as detailed above.There is no airspace consolidation typical for pneumonia or p leural effusion. A 1.8 cm irregular density in the anterior left lower lobe likely resents atelectasis. A 3-4 month follow-up chest CT is recommended to document resolution. Mild cardiomegaly. Hepatic steatosis.. Moderate hiatal hernia. With associated DVT PESI 80 by age, low risk No hemodynamic instability Sprained ankle with sedimentary lifestyle x1 month, no other history of clot, no recent travel Started on heparin GTT on admission Given high clot burden and saddle PE was admitted to the ICU for management. Thrombolysis deferred on admission - EKG: Sinus rhythm with PACs and aberrant conduction. No q waves in lead 3, III q waves - TTE with normal LV SF, mild concentric LVH, mild AV sclerosis, mild to moderate MR, RVSP 3040, no evidence of RV strain - BNP 214 1/3 criteria for DOAC adjustment, patient with high burden and high risk of morbidity and treatment failure. DOAC treatment deferred, will follow up with Dr. Arianna ospina/coag clinic and transition to Lovenox/warfarin tonight Warfarin 3 mg daily, follow nomogram for adjustment Stop heparin GTT ~9pm, start Lovenox 1 mg/kg twice daily INR daily (2) Hypertension: Plan: - BP in the ER was 170/90, transiently as high as 200/90. Likely from stress. -Lisinopril held due to clot burden Adequate blood pressure control today without antihypertensives (3) High cholesterol: Plan: - Continue statin (4) Alcohol use: Plan: History of 2-3 scotch per night, no recent alcohol free days, no history of withdrawal symptoms Patient at high risk for clinical deterioration from management of acute alcoho l withdrawal setting of saddle PE. Well could be managed with CIWA, patient offered alcohol to mitigate withdrawal rather than active management of withdrawal symptoms at this time Thiamine 100mcg daily Folic acid 1mg daily Patient with macrocytosis to 100.5, B12/Folate levels pending (5) DVT (deep venous thrombosis): Plan: - Anticoagulation as above Plan: FULL CODE - Confirmed with patient and that she would want all life- saving measures. Admission and Anticipated Discharge Date Admission Date: July 25, 2021 Libra Fraesr is seen at the bedside this morning. She reports the symptoms that brought her in were right lower extremity swelling, and a little bit of shortness of breath with exertion. She feels her right leg is unchanged, but has not noticed any shortness of breath today. No lightheadedness, dizziness, feeling of passing out or nearly passing out. She does not have chest pain, and denies pain taking a deep breath. No abdominal pain. She reports she has not been on blood thinners before, reports she has not had problems with falling or bleeding. Denies past history of blood clots, note she did hit her right leg shortly before the swelling began but notes it was not particularly painful until few days ago when it started to hurt more in the calf and which was associated with her exertional shortness of breath. Review of Systems Review of Systems: All systems reviewed & are unremarkable except as noted in Subjective Physical Exam Physical Exam: General: A&Ox3. NAD. Cooperative. HEENT: Atraumatic, normocephalic. Pulm: CTAB A&P. -wheezes, -rales, -rhonchi. Symmetrical chest rise. No increase in work of breathing. No respiratory distress. Cardiac: RRR, -mrg. Radial pulses intact and symmetrical. Abdominal: Nontender, nondistended, soft. BS present. Extremities: Right lower extremity swelling with increased calf circumference compared to the left. PT pulses intact bilaterally. Moves upper extremities equally with full strength Results & Data Results & [facility] ([facility]) Vital Signs (Past 12 Hours) Vital Signs Temp Pulse Pulse Resp BP BP Pulse Ox 07/26/21 05:40 144/71 H 07/26/21 04:45 75 15 148/80 H 95 07/26/21 04:30 75 20 166/83 H 91 07/26/21 04:15 69 16 139/66 93 07/26/21 04:00 67 14 138/69 93 07/26/21 03:50 72 20 93 07/26/21 03:45 72 20 132/68 93 07/26/21 03:30 37.1 C 77 23 93 07/26/21 03:15 77 18 149/71 H 93 07/26/21 03:00 77 14 159/77 H 94 07/26/21 02:45 75 19 160/78 H 97 07/26/21 02:30 66 19 135/70 93 07/26/21 02:15 75 20 134/65 92 07/26/21 02:00 74 17 93 07/26/21 01:45 71 18 143/74 H 94 07/26/21 01:30 72 27 H 138/65 94 07/26/21 01:15 74 22 138/73 94 07/26/21 01:00 80 18 158/82 H 94 07/26/21 00:45 74 18 146/68 H 94 07/26/21 00:30 76 17 151/66 H 93 07/26/21 00:15 81 17 154/81 H 95 07/26/21 00:00 37.0 C 75 17 150/79 H 93 07/25/21 23:45 76 18 162/82 H 94 07/25/21 23:30 78 18 158/87 H 96 07/25/21 23:15 79 18 158/99 H 95 07/25/21 23:00 75 18 170/104 H 95 07/25/21 22:45 77 19 166/93 H 95 07/25/21 22:30 79 21 180/97 H 94 07/25/21 22:15 78 19 170/82 H 94 07/25/21 22:00 79 16 174/113 H 96 07/25/21 21:45 188/102 H 07/25/21 21:42 84 20 07/25/21 21:30 82 15 181/92 H 95 07/25/21 21:17 83 18 154/90 H 95 07/25/21 21:15 85 23 95 07/25/21 21:00 90 24 210/116 H 96 07/25/21 20:45 84 23 96 07/25/21 20:37 37.1 C 87 27 H 201/97 H 97 07/25/21 20:34 37.1 C 16 201/97 H 95 07/25/21 20:00 86 17 94 07/25/21 19:56 97 07/25/21 19:46 82 86 21 181/118 H 181/118 H 96 07/25/21 19:45 85 18 96 PG Care Time/CCT Total # of Minutes Spent Total Time Spent with Patient: Total time spent is greater than 50% in coordination of care (as documented) at patient's floor/unit and/or counseling patient: Coding Level of Care Code 53671 Subseq Hosp Care Lvl 3 Diagnoses Pulmonary embolism I26.99 Acute cor pulmonale presence: unspecified Chronicity: acute Pulmonary embolism type: unspecified Hypertension I10 High cholesterol E78.00 Alcohol use Z72.89 DVT (deep venous thrombosis) I82.401 Affected thrombotic vein of extremity: unspecified vein of extremity Chronicity: acute DVT location: lower extremity Laterality: right (1) DVT (deep venous thrombosis) Affected thrombotic vein of extremity: unspecified vein of extremity Chronicity: acute DVT location: lower extremity Laterality: right Qualified Code(s): I82.401 - Acute embolism and thrombosis of unspecified deep veins of right lower extremity (2) Pulmonary embolism Acute cor pulmonale presence: unspecified Chronicity: acute Pulmonary embolism type: unspecified Qualified Code(s): I26.99 - Other pulmonary embolism without acute cor pulmonale
--- NOTE | 2021-07-26 07:56 | Critical Care Progress Note ---
Date of Service July 26, 2021 Assessment & Plan (1) Admitted to intensive care unit: Plan: Reason Critically Ill: 80-year-old female with large pulmonary embolus with saddle component requiring close hemodynamic monitoring and possible need for thrombolysis. NEURO - * CAM ICU: NEGATIVE * Alcohol use: * Patient drinks 2-3 scotch drinks per evening. * Previously with mild alcohol use, but reports that over the last 2 years in regards to the COVID-19 pandemic, the patient admits to drinking 2-3 drinks per night which seems to help her relax in the evenings and get better sleep. She has not abstain from alcohol for any substantial amount of time over this past 2 years. She is uncertain of history of withdrawal symptoms. She admits that she does feel more relaxed in the evening after drink. * Patient not tachycardic upon arrival, but she is with hypertension. Did discuss minimizing alcohol use, however, in the situation, I do not feel that adding complete removal alcohol at this time is in the patient's best interests, particularly given her underlying catastrophic pulmonary embolism. Was offered whiskey drink at night to help with symptoms. She feels as though this may help her relax more. In conversation, it is obvious the patient is asked about her current and recent diagnosis. In combination, I do feel that we will have better results with instituting nightly cocktail versus AWSS scale at this time. Will cerainly consider this pending patient's hospitalization course. CARDIAC/VASCULAR - * HTN: improved * Will check AM Echo: pending * Restart lisinopril 20mg RESPIRATORY - * Large PE w/ Saddle component: * Also noted to have RLE DVT today as well. * HR, Pulse Ox, BP stable. * Heparin gtt started. * No heart strain on CTA. * No leaked trops. * Continue w/ Heparin gtt for now. * TPA if she were to decompensate. GI/NUTRITION - * Regular Diet. RENAL/LYTES - * No significant electrolyte derangements. - * No concerns at this time. ENDO - * No h/o DM or thyroid Dz * BSGs per unit protocol. ISS --> gtt per unit policy. HEME - * Anticoagulated on Heparin gtt: * Monitor for s/s bleeding. ID - * No concerns for infectious contribution at this time. LINES/IV ACCESS - * PIVs x2 DVT PROPHYLAXIS - * Heparin gtt PT/OT consults placed Increase activity: ambulate PRN. Stable for downgrade from ICU (2) Pulmonary embolism: (3) DVT (deep venous thrombosis): (4) High cholesterol: (5) Hypertension: (6) Alcohol use: Admission and Anticipated Discharge Date Admission Date: July 25, 2021 Results & Data Results & Data ([facility]) Vital Signs (Past 12 Hours) Vital Signs Temp Pulse Resp BP BP Pulse Ox 07/26/21 05:40 144/71 H 07/26/21 04:45 75 15 148/80 H 95 07/26/21 04:30 75 20 166/83 H 91 07/26/21 04:15 69 16 139/66 93 07/26/21 04:00 67 14 138/69 93 07/26/21 03:50 72 20 93 07/26/21 03:45 72 20 132/68 93 07/26/21 03:30 37.1 C 77 23 93 07/26/21 03:15 77 18 149/71 H 93 07/26/21 03:00 77 14 159/77 H 94 07/26/21 02:45 75 19 160/78 H 97 07/26/21 02:30 66 19 135/70 93 07/26/21 02:15 75 20 134/65 92 07/26/21 02:00 74 17 93 07/26/21 01:45 71 18 143/74 H 94 07/26/21 01:30 72 27 H 138/65 94 07/26/21 01:15 74 22 138/73 94 07/26/21 01:00 80 18 158/82 H 94 07/26/21 00:45 74 18 146/68 H 94 07/26/21 00:30 76 17 151/66 H 93 07/26/21 00:15 81 17 154/81 H 95 07/26/21 00:00 37.0 C 75 17 150/79 H 93 07/25/21 23:45 76 18 162/82 H 94 07/25/21 23:30 78 18 158/87 H 96 07/25/21 23:15 79 18 158/99 H 95 07/25/21 23:00 75 18 170/104 H 95 07/25/21 22:45 77 19 166/93 H 95 07/25/21 22:30 79 21 180/97 H 94 07/25/21 22:15 78 19 170/82 H 94 07/25/21 22:00 79 16 174/113 H 96 07/25/21 21:45 188/102 H 07/25/21 21:42 84 20 07/25/21 21:30 82 15 181/92 H 95 07/25/21 21:17 83 18 154/90 H 95 07/25/21 21:15 85 23 95 07/25/21 21:00 90 24 210/116 H 96 07/25/21 20:45 84 23 96 07/25/21 20:37 37.1 C 87 27 H 201/97 H 97 07/25/21 20:34 37.1 C 16 201/97 H 95 07/25/21 20:00 86 17 94 Coding Level of Care Code 39130 Subseq Hosp Care Lvl 3 Diagnoses Admitted to intensive care unit Z78.9 Pulmonary embolism I26.99 Acute cor pulmonale presence: unspecified Chronicity: acute Pulmonary embolism type: unspecified DVT (deep venous thrombosis) I82.401 Affected thrombotic vein of extremity: unspecified vein of extremity Chronicity: acute DVT location: lower extremity Laterality: right High cholesterol E78.00 Hypertension I10 Alcohol use Z72.89 (1) DVT (deep venous thrombosis) Affected thrombotic vein of extremity: unspecified vein of extremity Chronicity: acute DVT location: lower extremity Laterality: right Qualified Code(s): I82.401 - Acute embolism and thrombosis of unspecified deep veins of right lower extremity (2) Pulmonary embolism Acute cor pulmonale presence: unspecified Chronicity: acute Pulmonary embolism type: unspecified Qualified Code(s): I26.99 - Other pulmonary embolism without acute cor pulmonale
[2021-07-26 08:51] LABS: Partial Thromboplastin Ratio 3.3
[2021-07-26] MEDS: CALCIUM 600MG + VIT D 400 IU TAB PO SCH (08:54)
[2021-07-26] MEDS: lisinopril 20 MG TAB PO SCH (08:54)
[2021-07-26] MEDS: CHOLECALCIFEROL 1,000 UNITS 25 MCG TAB PO SCH (08:54)
[2021-07-26] MEDS ORDERED: CALCIUM CARBONATE VITAMIN D PO SCH (09:00)
[2021-07-26] MEDS ORDERED: VITAMIN D PO SCH (09:00)
[2021-07-26 09:33] LABS: Partial Thromboplastin Time 89.4 Seconds (21.0-31.0)
--- NOTE | 2021-07-26 10:44 | Electrocardiogram Report ---
Test Reason : Blood Pressure : / mmHG Vent. Rate : 091 BPM Atrial Rate : 091 BPM P-R Int : 142 ms QRS Dur : 086 ms QT Int : 346 ms P-R-T Axes : 048 -13 044 degrees QTc Int : 425 ms Sinus rhythm with Premature atrial complexes with Aberrant conduction Otherwise normal ECG No previous ECGs available Confirmed by Rehan Galicia ([id number]) on 07/26/2021 10:43:48 AM Referred By: Phyllis Oleary Confirmed By:Teja Galicia
--- NOTE | 2021-07-26 12:23 | XCELERA ---
[id number]
[2021-07-26 13:43] LABS: Prothrombin Time 10.3 Seconds (9.0-12.0)
[2021-07-26] MEDS ORDERED: WARFARIN SOD 5 MG TAB PO SCH (16:00)
[2021-07-26 17:09] LABS: Partial Thromboplastin Ratio 2.2
[2021-07-26 17:10] LABS: Partial Thromboplastin Time 60.4 Seconds (21.0-31.0)
[2021-07-26] MEDS: ATORVASTATIN 10 MG TAB PO SCH (20:07)
[2021-07-26] MEDS: ENOXAPARIN 80 MG/0.8 ML SYR SQ SCH (20:07)
[2021-07-26] MEDS: HEPARIN SODIUM/DEXTROSE 25,000 UNITS/500 ML BAG IV SCH (20:08)
[2021-07-26] MEDS ORDERED: STOP HEPARIN ORDER ONE (21:00)
[2021-07-26] MEDS ORDERED: ENOXAPARIN 1 MG/KG SQ SCH (21:00)
[2021-07-26] MEDS: WHISKEY 1 DOSE PO SCH (22:57)
[2021-07-27 05:08] LABS: INR 1.9 (0.9-1.1); Prothrombin Time 19.7 Seconds (9.0-12.0)
[2021-07-27 05:17] LABS: BUN Creatinine Ratio 10.7 (10-20); Calcium 8.8 mg/dl (8.5-10.1); Creatinine Clr Calc Pharmacy 69.2 ml/min; Est GFR (African American) 102.1 ml/min; Est GFR (Non-African American) 88.1 ml/min
[2021-07-27 05:25] LABS: Basophils # (auto) 0.02 K/uL (0-0.2); Basophils % (auto) 0.2 %; Eosinophils # (auto) 0.04 K/uL (0-0.5); Eosinophils % (auto) 0.5 %; Hematocrit (blood only) 40.6 % (37-47); Hemoglobin 13.8 g/dL (12.0-16.0); Immature Granulocytes # (auto) 0.02 K/uL (0.00-0.02); Immature Granulocytes % (auto) 0.2 %; Lymphocytes # (auto) 1.78 K/uL (1.2-3.4); Lymphocytes % (auto) 20.9 %; Mean Corpuscular Hemoglobin 34.3 pg (25-34); Mean Platelet Volume 10.5 fL (7.4-10.4); Monocytes # (auto) 1.15 K/uL (0.11-0.59); Monocytes % (auto) 13.5 %; Neutrophils % (auto) 64.7 %; Platelet Count 129 K/uL (130-400); RDW Coefficient of Variation 12.9 % (11.5-14.5); RDW Standard Deviation 47.5 fL (36.4-46.3); Red Blood Count 4.02 M/uL (4.2-5.4); White Blood Count 8.51 K/uL (4.8-10.8)
[2021-07-27] MEDS: THIAMINE HCL 100 MG TAB PO SCH (09:05)
[2021-07-27] MEDS: lisinopril 20 MG TAB PO SCH (09:05)
[2021-07-27] MEDS: FOLIC ACID 1 MG TAB PO SCH (09:05)
[2021-07-27] MEDS: CALCIUM 600MG + VIT D 400 IU TAB PO SCH (09:06)
[2021-07-27] MEDS: CHOLECALCIFEROL 1,000 UNITS 25 MCG TAB PO SCH (09:06)
[2021-07-27] MEDS: ENOXAPARIN 80 MG/0.8 ML SYR SQ SCH ×2 (09:06→20:13)
--- NOTE | 2021-07-27 10:34 | Electrocardiogram Report ---
Test Reason : Blood Pressure : / mmHG Vent. Rate : 081 BPM Atrial Rate : 081 BPM P-R Int : 158 ms QRS Dur : 084 ms QT Int : 354 ms P-R-T Axes : 056 -22 058 degrees QTc Int : 411 ms Sinus rhythm with Premature supraventricular complexes and with occasional Premature ventricular comp lexes Left ventricular hypertrophy with repolarization abnormality Abnormal ECG When compared with ECG of 25-JUL-2021 16:33, Premature ventricular complexes are now Present Confirmed by Rehan Galicia ([id number]) on 07/27/2021 10:34:08 AM Referred By: Phyllis Oleary Confirmed By:Teja Galicia
--- NOTE | 2021-07-27 12:31 | Hospitalist Progress Note ---
Date of Service July 27, 2021 Assessment & Plan (1) Pulmonary embolism: Plan: Saddle pulmonary embolism CTA: Saddle pulmonary embolus with extensive bilateral pulmonary emboli as detailed above.There is no airspace consolidation typical for pneumonia or p leural effusion. A 1.8 cm irregular density in the anterior left lower lobe likely resents atelectasis. A 3-4 month follow-up chest CT is recommended to document resolution. Mild cardiomegaly. Hepatic steatosis.. Moderate hiatal hernia. With associated DVT PESI 80 by age, low risk No hemodynamic instability Sprained ankle with sedimentary lifestyle x1 month, no other history of clot, no recent travel Started on heparin GTT on admission Given high clot burden and saddle PE was admitted to the ICU for management. Thrombolysis deferred on admission - EKG: Sinus rhythm with PACs and aberrant conduction. No q waves in lead 3, III q waves - TTE with normal LV SF, mild concentric LVH, mild AV sclerosis, mild to moderate MR, RVSP 3040, no evidence of RV strain - BNP 214 1/3 criteria for DOAC adjustment, patient with high burden and high risk of morbidity and treatment failure. DOAC treatment deferred, will follow up with Dr. Arianna ospina/coag clinic with Lovenox/warfarin as below Patient with rapid rise to INR of 1.9 from 1.0 after 1 dose of warfarin 1.5 mg. Daily dose decreased to 1.25 mg p.o. daily. INR daily, continue Lovenox, given high risk saddle embolus and rapid change in INR will watch for stability overnight. Call to schedule additional follow-up in coagulation clinic when open tomorrow PT/OT pending (2) Hypertension: Plan: - BP in the ER was 170/90, transiently as high as 200/90. Likely from stress. -Lisinopril held due to clot burden Adequate blood pressure control today without antihypertensives (3) High cholesterol: Plan: - Continue statin (4) Alcohol use: Plan: History of 2-3 scotch per night, no recent alcohol free days, no history of DTs Patient at high risk for clinical deterioration from management of acute alcohol withdrawal setting of saddle PE. Well could be managed with CIWA, patient offered alcohol to mitigate withdrawal rather than active management of withdrawal symptoms at this time Thiamine 100mcg daily Folic acid 1mg daily Patient with macrocytosis to 100.5. Folate normal. B12 pended. May have macrocytosis in the setting of chronic alcohol use Globin 13.8 (5) DVT (deep venous thrombosis): Plan: - Anticoagulation as above Plan: FULL CODE - Confirmed with patient and that she would want all life- saving measures. Admission and Anticipated Discharge Date Admission Date: July 25, 2021 Libra Fraser seen the bedside this morning. She feels clinically well, and improved compared to yesterday. She reports the first Lovenox shot was not painful at all, although the second shot stung a little bit. She feels the shortness of breath that she experienced before coming in has resolved, and she is not short of breath at rest or with going to the bathroom. Denies chest pain, chest pressure, lightheadedness, dizziness, syncope, presyncope today. Denies any nosebleeds, black/bloody bowel movements. Was a little bit tremulous last night/previous. For nursing report patient does continue with an evening whiskey to mitigate the onset of withdrawal, did eliminate her tremor previously. Patient reports that she does not eat much leafy green vegetables, is nervous after epidemics of broke out from things like spinach and salad. Review of Systems Review of Systems: All systems reviewed & are unremarkable except as noted in Subjective Physical Exam Physical Exam: General: A&Ox3. NAD. Cooperative. HEENT: Atraumatic, normocephalic. Pulm: CTAB A&P. -wheezes, -rales, -rhonchi. Symmetrical chest rise. No increase in work of breathing. No respiratory distress. Cardiac: RRR, -mrg. Radial pulses intact and symmetrical. Abdominal: Nontender, nondistended, soft. BS present. Extremities: Right lower extremity swelling with increased calf circumference compared to the left. PT pulses intact bilaterally. Moves upper extremities equally with full strength Results & Data Results & Data ([facility]) Vital Signs (Past 12 Hours) Vital Signs Temp Pulse Pulse Resp BP Pulse Ox 07/27/21 11:06 37.0 C 81 18 146/83 H 96 07/27/21 08:00 37.2 C 07/27/21 07:59 88 20 140/82 95 07/27/21 04:30 36.8 C 78 20 138/81 92 07/27/21 04:00 75 PG Care Time/CCT Total # of Minutes Spent Total Time Spent with Patient: Total time spent is greater than 50% in coordination of care (as documented) at patient's floor/unit and/or counseling patient: Coding Level of Care Code 61542 Subseq Hosp Care Lvl 2 Diagnoses Pulmonary embolism I26.99 Acute cor pulmonale presence: unspecified Chronicity: acute Pulmonary embolism type: unspecified Hypertension I10 High cholesterol E78.00 Alcohol use Z72.89 DVT (deep venous thrombosis) I82.401 Affected thrombotic vein of extremity: unspecified vein of extremity Chronicity: acute DVT location: lower extremity Laterality: right (1) Pulmonary embolism Acute cor pulmonale presence: unspecified Chronicity: acute Pulmonary embolism type: unspecified Qualified Code(s): I26.99 - Other pulmonary embolism without acute cor pulmonale (2) DVT (deep venous thrombosis) Affected thrombotic vein of extremity: unspecified vein of extremity Chronicity: acute DVT location: lower extremity Laterality: right Qualified Code(s): I82.401 - Acute embolism and thrombosis of unspecified deep veins of right lower extremity
[2021-07-27] MEDS ORDERED: WARFARIN SOD 2.5 MG TAB PO SCH (16:00)
[2021-07-27] MEDS ORDERED: WARFARIN SOD 1.25 MG TAB PO SCH (16:00)
[2021-07-27] MEDS ORDERED: hydrALAZINE HCL 20 MG/ML VIAL IV ONE (16:29)
[2021-07-27] MEDS: hydroCHLOROthiazide 25 MG TAB PO SCH (17:37)
[2021-07-27] MEDS: ATORVASTATIN 10 MG TAB PO SCH (20:12)
[2021-07-27] MEDS: WHISKEY 1 DOSE PO SCH (20:22)
[2021-07-28 06:32] LABS: Basophils # (auto) 0.03 K/uL (0-0.2); Basophils % (auto) 0.4 %; Eosinophils # (auto) 0.08 K/uL (0-0.5); Eosinophils % (auto) 1.2 %; Hematocrit (blood only) 39.2 % (37-47); Hemoglobin 13.6 g/dL (12.0-16.0); Immature Granulocytes # (auto) 0.04 K/uL (0.00-0.02); Immature Granulocytes % (auto) 0.6 %; Lymphocytes # (auto) 1.52 K/uL (1.2-3.4); Lymphocytes % (auto) 22.3 %; Mean Corpuscular Hemoglobin 34.7 pg (25-34); Mean Corpuscular Hgb Conc 34.7 g/dL (32-36); Mean Platelet Volume 10.5 fL (7.4-10.4); Monocytes # (auto) 0.95 K/uL (0.11-0.59); Monocytes % (auto) 13.9 %; Neutrophils # (auto) 4.21 K/uL (1.4-6.5); Neutrophils % (auto) 61.6 %; Platelet Count 142 K/uL (130-400); RDW Coefficient of Variation 12.9 % (11.5-14.5); RDW Standard Deviation 46.8 fL (36.4-46.3); Red Blood Count 3.92 M/uL (4.2-5.4); White Blood Count 6.83 K/uL (4.8-10.8)
[2021-07-28 06:40] LABS: Prothrombin Time 10.5 Seconds (9.0-12.0)
[2021-07-28 06:45] LABS: BUN Creatinine Ratio 18.8 (10-20); Creatinine Clr Calc Pharmacy 80.7 ml/min; Est GFR (African American) 107.4 ml/min; Est GFR (Non-African American) 92.6 ml/min; Potassium 3.7 mmol/L (3.5-5.1)
[2021-07-28] MEDS: ENOXAPARIN 80 MG/0.8 ML SYR SQ SCH (07:54)
[2021-07-28] MEDS: lisinopril 20 MG TAB PO SCH (07:54)
[2021-07-28] MEDS: THIAMINE HCL 100 MG TAB PO SCH (07:55)
[2021-07-28] MEDS: CALCIUM 600MG + VIT D 400 IU TAB PO SCH (07:55)
[2021-07-28] MEDS: hydroCHLOROthiazide 25 MG TAB PO SCH (07:55)
[2021-07-28] MEDS: CHOLECALCIFEROL 1,000 UNITS 25 MCG TAB PO SCH (07:55)
[2021-07-28] MEDS: FOLIC ACID 1 MG TAB PO SCH (07:55)
--- NOTE | 2021-07-28 12:17 | Discharge Summary ---
Date of Service July 28, 2021 Admission HPI Per Admitting Provider 80yo F w/ hx of HTN and osteoporosis who presents with saddle PE. The patient reports that she stumbled and thought she sprained her right ankle about 1 month ago. The ankle was sore and slightly swollen at that time. Over the last month, she has tried to be less mobile, elevating and wrapping the ankle and using ice. However, instead of improving, she has had increasing swelling and a "pressure" sensation that has continued and worsened over the last month. Over the last few days, the ankle and ng have become more swollen. No tenderness, no "pain" per the patient (though still with the pressure sensation). Over the last week, she has also noted increased shortness of breath, though no chest pain, no lightheadedness, no dizziness. No fevers/chills, no vomiting/nausea, no urinary issues or changes in bowel habits. In the ER, she was found to have a saddle PE. She denies any history of bleeding. No head surgeries in the past. No hx of ICH. No hx of GI bleeding. Principal Diagnosis Saddle embolism, right lower extremity DVT Discharge Exam General: A&Ox3. NAD. Cooperative. HEENT: Atraumatic, normocephalic. Visual acuity and hearing grossly intact Pulm: CTAB A&P. -wheezes, -rales, -rhonchi. Symmetrical chest rise. No increase in work of breathing. No respiratory distress. Cardiac: RRR, -mrg. Radial pulses intact and symmetrical. Abdominal: Nontender, nondistended, soft. BS present. Extremities: Right lower extremity swelling with increased calf circumference compared to the left. PT pulses intact bilaterally. Moves upper and lower extremities equally with full strength Discharge Data Allergies Allergy/AdvReac Type Severity Reaction Status Date / Time No Known Allergies Allergy Unverified 05/18/16 07:10 Consultations 07/25/21 18:30 ED Decision to Admit Stat 07/25/21 20:49 Consult Woodworking Machine [employer] Routine Ordered Studies 07/25/21 16:09 CT angio chest PE protocol Stat Hospital Course (1) Pulmonary embolism: Bria is an 80-year-old female who presented with right lower extremity swelling after bumping her leg several weeks ago who developed worsening shortness of breath and leg pain in the preceding week. Was found to have a saddle pulmonary embolus without signs of heart strain, did not require thrombolytics during admission, was not a good DOAC candidate and was discharged on Lovenox and warfarin with transition to warfarin. Follow-up appointments were being scheduled for within 48 hours with the coagulation clinic and within 1 week to her primary care physician. To do as outpatient: 1. Warfarin dosing with adjustment to obtain goal INR 23. 2. Continue warfarin 3 mg daily, as just as needed per nomogram 3. Routine PCP follow-up within 1 week 4. Patient does have 23 drinks per evening alcohol use prior to admission alcohol free days in the preceding months She did not show signs of acute withdrawal, during admission it was felt that the risk of attempting to treat potential withdrawal symptoms in the setting of a saddle embolus exceeded that of benefit of using SANTY/CIWA protocol. As such patient was allowed 1 whiskey cocktail in evening for withdrawal prevention, and did well with this. Not show evidence of hemodynamic instability/withdrawal during admission Saddle pulmonary embolism CTA: Saddle pulmonary embolus with extensive bilateral pulmonary emboli as detailed above.There is no airspace consolidation typical for pneumonia or pleural effusion. A 1.8 cm irregular density in the anterior left lower lobe likely resents atelectasis. A 3-4 month follow-up chest CT is recommended to document resolution. Mild cardiomegaly. Hepatic steatosis.. Moderate hiatal hernia. With associated DVT PESI 80 by age, low risk No hemodynamic instability Sprained ankle with sedimentary lifestyle x1 month, no other history of clot, no recent travel Started on heparin GTT on admission Given high clot burden and saddle PE was admitted to the ICU for management. Thrombolysis deferred on admission - EKG: Sinus rhythm with PACs and aberrant conduction. No q waves in lead 3, III q waves - TTE with normal LV SF, mild concentric LVH, mild AV sclerosis, mild to moderate MR, RVSP 3040, no evidence of RV strain - BNP 214 1/3 criteria for DOAC adjustment, patient with high burden and high risk of morbidity and treatment failure. DOAC treatment deferred, will follow up with Dr. Arianna ospina/coag clinic with Lovenox/warfarin as below Patient with rapid rise to INR of 1.9 from 1.0 after 1 dose of warfarin 1.5 mg. Daily dose decreased to 1.25 mg p.o. daily. INR daily, continue Lovenox, given high risk saddle embolus and rapid change in INR will watch for stability overnight. INR 1.0 on recheck, dose increased to 3 mg p.o. daily. Patient stable for discharge, discharged to continue Lovenox bridge and follow-up to PCP and coagu lation clinic (2) Hypertension: - BP in the ER was 170/90, transiently as high as 200/90. Likely from stress. -Lisinopril held due to clot burden Adequate blood pressure control today without antihypertensives Slightly hypertensive at discharge, home lisinopril resumed (3) High cholesterol: - Continue statin (4) Alcohol use: History of 2-3 scotch per night, no recent alcohol free days, no history of DTs Patient at high risk for clinical deterioration from management of acute alcohol withdrawal setting of saddle PE. Well could be managed with CIWA, patient offered alcohol to mitigate withdrawal rather than active management of withdrawal symptoms at this time Thiamine 100mcg daily Folic acid 1mg daily Patient with macrocytosis to 100.5. Folate normal. B12 pended. May have macrocytosis in the setting of chronic alcohol use Hemoglobin (5) DVT (deep venous thrombosis): - Anticoagulation as above FULL CODE - Confirmed with patient and that she would want all life-saving measures. Total Time Total Time Spent Total Time Spent (In Minutes): Time spend day of discharge 40 minutes including direct patient care, documentation, review of labs and images, and coordination of care. Discharge Plan Discharge Items Patient Disposition: Home - Home Health Services Reason For Visit: SADDLE PE Discharge Diagnosis: Saddle PE Activity: Resume your previous activity Non-emergency contact: Primary Care Provider Call non-emergency contact if: you have any medication questions, your symptoms worsen, your pain is not controlled, your pain is worsening and your pain is unusual for you Follow-up/Referrals: Makenzie Kc MD, PhD [Pathologist] - 07/30/21 9:00 am ([facility]) Phyllis Oleary PA-C [Primary Care Provider] - Diet: Regular Addtl Attending Provider Instructions: You were seen in the hospital for a blood clot in your leg (DVT) which travel to your lung (pulmonary embolism). Your type of pulmonary some was called a saddle pulmonary embolism and placed you at extremely high risk for potentially life- threatening complications. You were treated with a blood thinner by IV while in the hospital and did well. Clot busting medications were not required during her admission. Your ultrasound of your heart did not show evidence of heart strain, and you did well during hospitalization. Your case was discussed with the anticoagulation specialist, due to your age and weight and high risk saddle pulmonary embolism treatment with a DOAC anticoagulant such as Eliquis/Xarelto was not recommended. You were recommended for anticoagulation with warfarin, this requires a bridge treatment with injectable Lovenox until your blood is the correct tenderness. You have been prescribed a medication, warfarin. Warfarin doses must be individualized to the patient. Please take warfarin 3 mg daily at this time, and have a INR (blood thickness check) no later than 07/30/2021. A follow-up appointment is being scheduled for you with the coagulation clinic and coagulation specialist, they will advise you on how to adjust your daily warfarin dose. Your goal INR is between 2 and 3. Until your blood is the correct thinness (INR between 23) you will require protection with an additional anticoagulant, called Lovenox. Please take Lovenox 60 mg by subcutaneous injection every 12 hours as taught during admission until advised to stop by either your PCP or coagulation specialist at follow-up. 1 week of medication with a refill has been sent, additional refills will need to be prescribed by your primary care physician if needed. A follow-up appointment is being scheduled for you with your primary care physician. You should be seen within 1 week. If you do not receive a call to confirm your appointment within 24 hours, please contact their office at the number above. A follow-up appointment has been scheduled for you with the coagulation clinic on 07/30/[address] Kc. If you need to change his appointment, please call their office at the number above If you develop any new or worsening symptoms including fever, chills, sweats, chest pain, chest pressure, difficulty breathing, uncontrolled nausea/vomiting, rash, wheezing, passing out or nearly passing out, bleeding, black/bloody bowel movements, or other new or concerning symptoms please call your primary care physician, or call 911 for re-evaluation in the emergency department if you are very concerned. Pending Studies at Discharge: No Stand-Alone Forms: My [facility], Smoking Cessation Medications and DC Order Prescriptions: New warfarin 3 mg Tablet 3 mg PO DAILY@1600 Qty: 14 RF: 1 enoxaparin 60 mg/0.6 mL syringe 60 mg subcut Q12H 7 Days Qty: 6 RF: 2 Continued ATORVASTATIN (LIPITOR) 10 MG tablet 10 mg PO QPM Qty: 0 RF: 0 CALCIUM CARBONATE-VITAMIN D (CALCIUM) 1 TAB tablet 1 tab PO QAM Qty: 0 RF: 0 Fish Oil ([place]-3) 1 EA capsule 1 cap PO QAM Qty: 0 RF: 0 Loratadine (Claritin) 10 MG tablet 10 mg PO DAILY PRN (Reason: PRN) Qty: 0 RF: 0 Multivitamin tablet 1 tab PO QAM Qty: 0 RF: 0 VITAMIN D 1 tab PO QAM Qty: 0 RF: 0 Discharge Orders: Discharge Order (Routine); Ordered 07/28/21 Ordered By: Danial Aguayo/Other Patient Handouts: Pulmonary Embolism, DVT Dc Admission Data Admit Date/Time: 07/25/21 19:32 Attending Provider: Danial Serra Admit Provider: Clem Schroeder Primary Care Provider: Phyllis Oleary Other Providers: Clem Schroeder ; Leopoldo Rebolledo ; [place] Other Interventions: Discharge Summary Assessment (RN) Last Done: 07/28/21 12:15 Coding Level of Care Code D/C DAY MANAGEMENT >30 MINS Diagnoses Pulmonary embolism I26.99 Acute cor pulmonale presence: unspecified Chronicity: acute Pulmonary embolism type: unspecified Hypertension I10 High cholesterol E78.00 Alcohol use Z72.89 DVT (deep venous thrombosis) I82.401 Affected thrombotic vein of extremity: unspecified vein of extremity Chronicity: acute DVT location: lower extremity Laterality: right
[2021-07-28] MEDS ORDERED: WARFARIN SOD 3 MG TAB PO SCH (16:00)
== END 2021-07-28 16:11 | disposition home health service (06) | DRG 176 ==
LOC: ED 15:48 → 1E 19:32 → SUATTDRO 19:32 → 1E 20:00 → 2S 07-27 18:06

== ENCOUNTER 2025-01-10 11:00 | Inpatient (IN) ==
--- NOTE | 2025-01-10 11:16 | Emergency Department Note ---
Impression & Plan Bilateral pulmonary embolism, Breast mass, right, Hypokalemia, Abnormal urinalysis ED Provider Note Diagnosis: Pulmonary embolism, urinary tract infection, altered mental status, hypokalemia, breast mass Disposition: Admission CHIEF COMPLAINT: Weakness HPI: Patient is an 84-year-old female presenting from home with reported increased weakness. Patient states that this has been ongoing for multiple days time but became worse today. Patient states she has not urinated her had a bowel movement in over 24 hours time. Patient states that she feels like she has no energy and it is hard to get around. Patient denies any weakness to one side of her body or the other. Patient has any active chest pain or shortness of breath. PAST MEDICAL HISTORY: See Below PAST SURGICAL HISTORY: See Below SOCIAL HISTORY: See Below HOME MEDICATIONS: See Below ALLERGIES: See Below VITALS: See Below PHYSICAL EXAMINATION: GENERAL: Moderate distress EYE EXAM: Normal conjunctiva. OROPHARYNX: Moist mucus membranes. Grossly normal dentition. NECK: Supple, LUNGS: Clear to auscultation. Normal chest wall mechanics. HEART: NSR ABDOMEN: Abdomen soft, non-tender, normo-active bowel sounds, no masses, no rebound or guarding BACK: No CVA TTP. SKIN: No rashes and no bruising. UPPER EXTREMITIES: Upper extremities are grossly normal LOWER EXTREMITIES: Grossly normal, no edema. NEURO EXAM: A&O x3,, normal speech, 5 out of 5 muscle strength upper and lower extremities bilaterally, Intact sensation upper and lower extremities bilaterally PSYCH: Cooperative MEDICAL DECISION MAKING: History obtained from: Patient, ER Course: Patient is an 84-year-old female presenting from home with generalized weakness. Patient has not reportedly urinated or had a bowel movement over 24 hours time. Patient feels like she has no energy. Patient denies chest pain or shortness of breath. Patient having some abdominal pain intermittently. Patient has no focal deficits on exam. Patient had CT scan of the head negative for intracranial hemorrhage. Patient CT scan of abdomen and pelvis shows bilateral pulmonary embolisms, breast mass. Patient and were made aware of the breast mass finding on CT and need for further investigation in the future. Patient was started on therapeutic Lovenox dose due to the pulmonary embolisms. Patient started on Rocephin due to urinary tract infection. Patient given p.o. potassium due to hypokalemia. Patient's case discussed with hospital service for further treatment and evaluation Labs (independently interpreted) are significant for: Hypokalemia Imaging results (independently interpreted): Chest x-ray atelectasis EKG interpretation (independently interpreted): Normal sinus rhythm no ST segment elevation or depression Medications given: Lovenox, potassium, Rocephin Consultants: Hospitalist Triage Nursing notes reviewed and agree them. Vital Signs: reviewed and remarkable for: no significant abnormalities Critical care time 45 minutes this does not include time for procedures Past Med/Surg History Problem List (Updated 01/10/25 @ 16:00 by Tai Castro DO) Abnormal urinalysis (Acute) Hypokalemia (Acute) Breast mass, right (Acute) Bilateral pulmonary embolism (Acute) Alcohol use Hypertension High cholesterol Pulmonary embolism (Chronic) DVT (deep venous thrombosis) (Acute) Medical History Admitted to intensive care unit Basal cell carcinoma High cholesterol Hypertension Surgical History H/O: hysterectomy Social History Smoking Status: Former smoker Second Hand Exposure: No; Do You Dip or Chew Tobacco: No; Hx Alcohol Use: Yes Alcohol type: hard liquor Hx Substance Use: No Preferred Language: Kazakh Communication Ability: Effective Nursing Service Director Required: No Beliefs That Will Affect Care: None marital status: Current Living Situation: Spouse Feels Safe at Home: Yes Assistive Devices: Cane and Walker Allergies Allergies Allergy/AdvReac Type Severity Reaction Status Date / Time No Known Allergies Allergy Verified 01/10/25 15:38 Home Meds Home Medications Medication Instructions Recorded Confirmed vitamins A,C,U-nhbj-msvhls 4,296 1 cap PO DAILY 07/30/21 01/10/25 mcg-226 mg-90 mg capsule (PreserVision AREDS) atorvastatin 10 mg tablet 10 mg PO DAILY 08/08/21 01/10/25 lisinopril 20 mg tablet 20 mg PO DAILY 08/08/21 01/10/25 amlodipine 5 mg tablet 5 mg PO DAILY 10/31/22 01/10/25 calcium 600 mg (as 1 tab PO DAILY 10/31/22 01/10/25 carbonate)-vitamin D3 5 mcg (200 unit) tablet cholecalciferol (vitamin D3) 25 25 mcg PO DAILY 10/31/22 01/10/25 mcg (1,000 unit) tablet krill oil 500 mg capsule 500 mg PO DAILY 10/31/22 01/10/25 Results & Data (ED) Vital Signs Vital Signs - 24 hr 01/10/25 11:11 01/10/25 11:27 01/10/25 11:44 Temperature 36.7 C Temperature Source Oral Pulse Rate 78 88 80 Pulse Rate [Left Finger] Pulse Rate from SpO2 Sensor Respiratory Rate 20 13 Respiratory Effort / Characteristics Non-Labored Respiratory Depth Normal Respiratory Pattern Regular Blood Pressure 140/84 Blood Pressure [Left Arm] Blood Pressure Mean 102 Blood Pressure Mean [Left Arm] Pulse Oximetry 95 95 Oxygen Delivery Method Room Air Room Air Sepsis Recent Fever Within 48 Hours No Sepsis New/Unexplained Change in Mental Status Yes Sepsis Action Taken by Nursing No Action Required 01/10/25 12:30 01/10/25 12:53 01/10/25 13:03 Temperature Temperature Source Pulse Rate 79 81 78 Pulse Rate [Left Finger] Pulse Rate from SpO2 Sensor 69 Respiratory Rate 23 24 24 Respiratory Effort / Characteristics Respiratory Depth Respiratory Pattern Blood Pressure 143/82 H Blood Pressure [Left Arm] Blood Pressure Mean 112 Blood Pressure Mean [Left Arm] Pulse Oximetry 94 95 97 Oxygen Delivery Method Room Air Room Air Room Air Sepsis Recent Fever Within 48 Hours Sepsis New/Unexplained Change in Mental Status Sepsis Action Taken by Nursing 01/10/25 13:55 01/10/25 15:00 01/10/25 15:20 Temperature Temperature Source Pulse Rate 78 81 Pulse Rate [Left Finger] 81 Pulse Rate from SpO2 Sensor Respiratory Rate 17 16 Respiratory Effort / Characteristics Respiratory Depth Respiratory Pattern Blood Pressure Blood Pressure [Left Arm] 159/94 H Blood Pressure Mean Blood Pressure Mean [Left Arm] 115 Pulse Oximetry 95 95 Oxygen Delivery Method Room Air Sepsis Recent Fever Within 48 Hours Sepsis New/Unexplained Change in Mental Status Sepsis Action Taken by Nursing 01/10/25 15:21 Temperature Temperature Source Pulse Rate Pulse Rate [Left Finger] 75 Pulse Rate from SpO2 Sensor Respiratory Rate 16 Respiratory Effort / Characteristics Respiratory Depth Respiratory Pattern Blood Pressure Blood Pressure [Left Arm] 156/81 H Blood Pressure Mean Blood Pressure Mean [Left Arm] 106 Pulse Oximetry 96 Oxygen Delivery Method Room Air Sepsis Recent Fever Within 48 Hours Sepsis New/Unexplained Change in Mental Status Sepsis Action Taken by Nursing Laboratory Data 01/10/25 11:50 01/10/25 11:50 Lab Results 01/10/25 01/10/25 Range/Units 11:45 11:50 WBC 9.95 (4.8-10.8) K/ul RBC 3.60 L (4.20-5.40) M/uL Hgb 12.9 (12.0-16.0) g/dl Hct 37.0 (37.0-47.0) % MCV 102.8 H (80.0-100.0) fL MCH 35.8 H (25.0-34.0) pg MCHC 34.9 (32.0-36.0) g/dL RDW Std Deviation 47.6 H (36.4-46.3) fL RDW Coeff of Dean 12.7 (11.5-14.5) % Plt Count 179 (130-400) K/uL MPV 10.0 (9.4-12.4) fL Immature Gran % (Auto) 1.0 % Neut % (Auto) 74.2 % Lymph % (Auto) 15.0 % Jack % (Auto) 9.4 % Eos % (Auto) 0.1 % Baso % (Auto) 0.3 % Neut # (Auto) 7.38 H (1.40-6.50) K/uL Lymph # (Auto) 1.49 (1.20-3.40) K/uL Jack # (Auto) 0.94 H (0.11-0.59) K/uL Eos # (Auto) 0.01 (0.00-0.50) K/uL Baso # (Auto) 0.03 (0.00-0.20) K/uL Immature Gran # (Auto) 0.10 (0.01-0.20) K/uL Sodium 140 (136-145) mmol/L Potassium 2.8 L (3.5-5.1) mmol/L Chloride 104 (98-107) mmol/L Carbon Dioxide 29 (21-32) mmol/L Anion Gap 7 (3-11) BUN 11 (6-23) mg/dl Creatinine 0.41 L (0.6-1.2) mg/dl Est Cr Clr Drug Dosing 81.9 ml/min eGFR 96.96 BUN/Creatinine Ratio 26.8 H (10-20) Glucose 95 (70-99(Fasting)) mg/dl Calcium 8.8 (8.6-10.3) mg/dl Total Bilirubin 1.0 (0.2-1.0) mg/dl AST 30 (13-39) U/L ALT 18 (7-52) U/L Alkaline Phosphatase 90 (34-104) U/L Troponin I High Sens 13.3 (0-14) pg/ml Total Protein 5.8 L (6.0-8.3) gm/dl Albumin 2.7 L (3.4-5.0) gm/dl Globulin 3.1 (2.5-4.0) gm/dl Albumin/Globulin Ratio 0.9 (0.9-2) TSH 6.005 H (0.300-4.500) uIu/ml Free T4 1.08 (0.61-1.60) ng/dl Urine Color Dark Yellow Urine Appearance Clear (Clear) Urine pH 6.5 (4.5-7.5) Ur Specific [place] 1.019 (1.000-1.030) Urine Protein Trace H (Negative) Urine Glucose (UA) Negative (Negative) Urine Ketones 1+ H (Negative) Urine Blood Negative (Negative) Urine Nitrite Positive A (Negative) Urine Bilirubin 1+ H (Negative) Urine Urobilinogen Positive H (Negative) Ur Leukocyte Esterase 1+ H (Negative) Urine WBC (Auto) 0-5 (0-5) /hpf Urine RBC (Auto) 0-2 (0-2) /hpf U Hyaline Cast (Auto) 3-5 H (0-2) /lpf U Epithel Cells (Auto) 6-10 H (0-2) /hpf Urine Bacteria (Auto) 3+ H (None Seen) Hyaline Casts Present A (None Presnt) /lpf Granular Casts Present A (None Prsent) /lpf Urine Comment Administered Medications Enoxaparin Sodium (Enoxaparin Inj 60 Mg/0.6 Ml Syr) 50 mg SQ Q12H [facility] Stop: 02/09/25 15:14 Last Admin: 01/10/25 15:32 Dose: 50 mg Documented By: cad Discontinued Medications Sodium Chloride (Nss) 500 mls @ 999 mls/hr IV .Q31M [facility] Stop: 01/10/25 11:45 Last Infusion: 01/10/25 13:08 Dose: Infused Documented By: ranjan Admin: 01/10/25 11:43 Dose: 999 mls/hr Documented By: ranjan Ceftriaxone Sodium (Rocephin) 1,000 mg in 50 mls @ 100 mls/hr IV NOW STA Stop: 01/10/25 14:44 Last Infusion: 01/10/25 15:43 Dose: Infused Documented By: ranjan Admin: 01/10/25 14:58 Dose: 100 mls/hr Documented By: ranjan Ioversol (Optiray 320 125ml) 94 ml IV ONCE ONE Stop: 01/10/25 13:33 Last Admin: 01/10/25 13:32 Dose: 94 ml Documented By: LATONIA Potassium Chloride (Potassium Chloride Crtab 20 Meq Tabcr) 40 meq PO NOW STA Stop: 01/10/25 14:18 Last Admin: 01/10/25 14:56 Dose: 40 meq Documented By: ranjan Imaging Data Radiologist's Impression: Chest X-Ray 01/10/25 11:11 XR chest 1V portable CLINICAL HISTORY: weakness trauma COMPARISON STUDY: 03/21/2022 FINDINGS: The heart is at the upper limits of normal in size. No pneumothorax is visualized. There is minor blunting of the right lateral costophrenic angle and trace effusion cannot be excluded. There are increased markings at the left lung base. The left medial hemidiaphragm is obscured. This could represent focal pulmonary consolidation, atelectasis, or other pathology. Follow-up is recommended. There is no overt failure. IMPRESSION: 1. Interval development of increased markings at the left medial lung base , which obscure the left medial hemidiaphragm. This is a nonspecific finding which could be secondary to atelectasis, focal pulmonary consolidation, or other pathology. Follow-up is recommended. 2. Minimal blunting of the right lateral costophrenic angle. A trace effusion cannot be excluded. ACT 112: Negative or not required by law. Electronically signed by: Jimmy Maldonado M.D. 01/10/2025 12:34 PM Abdomen/Pelvis CT 01/10/25 11:[address] WITH IV CONTRAST CT DOSE: 1218.05 mGy.cm HISTORY: Acutely altered mental status with nausea and vomiting AMS, vomiting, not urinating, pain TECHNIQUE: Multiaxial CT images of the abdomen and pelvis were performed following the IV administration of 94 cc of Optiray, A dose lowering technique was utilized adhering to the principles of ALARA. COMPARISON STUDY: CTA chest 10/31/2022 FINDINGS: Pulmonary emboli noted within the main, lobar, segmental and subsegmental branches of the left lower and right middle lobes. No saddle pulmonary embolus is seen. Extensive coronary artery calcifications. No thoracic aortic aneurysm. [id number] layering pleural effusions with dependent bibasilar consolidation/atelectasis. Enhancing 2.1 x 1.5 cm ovoid lesion lateral to the right pectoralis musculature on image 35 series 6 No pneumatosis or pneumoperitoneum. Unremarkable spleen, gallbladder and adrenal glands. 8 mm hypodense pancreatic lesion on image 162 series 6 is nonspecific, however is of low clinical suspicion. Hepatic steatosis. Subcapsular 3.9 cm hypodensity of the left hepatic lobe on image 114 series 6 favors focal fatty infiltration. Patent portal vein. Unremarkable kidneys. No hydronephrosis. Unremarkable urinary bladder. Hysterectomy. Atherosclerosis of the aorta with infrarenal ectasia. Fusiform dilation of the right common iliac artery, 2.2 cm. Distal esophageal wall thickening. Moderate sized hiatal hernia. Colonic diverticulosis without acute diverticulitis. Normal appendix. Lower abdominal scattered air-fluid levels without bowel obstruction or bowel wall thickening. Moderate-sized right hip joint effusion, likely on a degenerative basis. No acute fracture or destructive bone lesion identified. 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 Numerous chronic appearing thoracolumbar compression deformities. IMPRESSION: 1. Bilateral pulmonary emboli with small to moderate pleural effusions and bibasilar atelectasis. 2. Enhancing 2.2 cm lesion within the right lower chest may represent an axillary tail breast mass versus pathologic axillary lymph node. Mammographic workup and biopsy is needed. 3. No bowel obstruction or bowel wall thickening. 4. Colonic diverticulosis without acute diverticulitis. 5. Moderate-sized hiatal hernia. ACT 112: Positive. There are findings on this exam that require communication between the performing entity and the patient following Patient Test Result Information Act ([place] Act 112) guidelines. The above report was generated using voice recognition software. It may contain grammatical, syntax or spelling errors. Electronically signed by: Gordon Moore M.D. 01/10/2025 2:[address] 01/10/25 11:50 CT SCAN OF THE BRAIN WITHOUT IV CONTRAST CLINICAL HISTORY: Acute change in mental status. Vomiting. COMPARISON STUDY: None TECHNIQUE: Unenhanced axial CT scan of the brain was performed from the vertex to the skull base. A dose lowering technique was utilized adhering to the principles of ALARA. CT DOSE: FINDINGS: No intra or extra-axial mass lesions are visualized. There is no CT evidence of acute cortical infarction. There is no midline shift. There is no acute hemorrhage. There are generalized atrophic changes. There are periventricular white matter hypodensities likely on a small vessel basis. There is mild ventricular prominence likely secondary to volume loss. No suspicious calvarial lesions are visualized. IMPRESSION: No acute intracranial findings. ACT 112: Negative or not required by law. Electronically signed by: Jimmy Maldonado M.D. 01/10/2025 1:48 PM Discharge Plan Visit Data Chief Complaint: Weakness Stated Complaint: WEAKNESS ED Provider: Tai Castro Discharge Problem: Bilateral pulmonary embolism, Breast mass, right, Hypokalemia, Abnormal urinalysis Condition: Serious Forms Stand Alone Forms: My [facility] [employer] Prescriptions Prescriptions: No Action lisinopril 20 mg tablet 20 mg PO DAILY atorvastatin 10 mg tablet 10 mg PO DAILY PreserVision AREDS [id number] [id number] capsule 1 cap PO DAILY amlodipine 5 mg tablet 5 mg PO DAILY cholecalciferol (vitamin D3) 25 mcg (1,000 unit) Tablet 25 mcg PO DAILY calcium carbonate-vitamin D3 [Calcium + D] 600 mg-5 mcg (200 unit) Tablet 1 tab PO DAILY krill oil 500 mg Capsule 500 mg PO DAILY Referrals Referrals: Maya Kendrick MD [Outside Practitioners] -
[2025-01-10] MEDS: SODIUM CHLORIDE 0.9% 500 ML IV SCH (11:43)
[2025-01-10 12:06] LABS: Appearance Urine Clear (Clear); Bacteria Urine Automated 3+ (None Seen); Glucose Urine UA Negative (Negative); RBC Urine Automated 0-2 /hpf (0-2); WBC Urine Automated 0-5 /hpf (0-5)
[2025-01-10 12:23] LABS: Hematocrit (blood only) 37.0 % (37.0-47.0); Hemoglobin 12.9 g/dl (12.0-16.0); Immature Granulocytes # (auto) 0.10 K/uL (0.01-0.20); Immature Granulocytes % (auto) 1.0 %; Mean Corpuscular Hemoglobin 35.8 pg (25.0-34.0); Mean Corpuscular Volume 102.8 fL (80.0-100.0); Platelet Count 179 K/uL (130-400); RDW Standard Deviation 47.6 fL (36.4-46.3); Red Blood Count 3.60 M/uL (4.20-5.40); White Blood Count 9.95 K/ul (4.8-10.8)
--- NOTE | 2025-01-10 12:36 | XRay Report ---
XR chest 1V portable CLINICAL HISTORY: weakness trauma COMPARISON STUDY: 03/21/2022 FINDINGS: The heart is at the upper limits of normal in size. No pneumothorax is visualized. There is minor blunting of the right lateral costophrenic angle and trace effusion cannot be excluded. There are increased markings at the left lung base. The left medial hemidiaphragm is obscured. This could r epresent focal pulmonary consolidation, atelectasis, or other pathology. Follow-up is recommended. Th ere is no overt failure. IMPRESSION: 1. Interval development of increased markings at the left medial lung base , which obscure the left m edial hemidiaphragm. This is a nonspecific finding which could be secondary to atelectasis, focal pul monary consolidation, or other pathology. Follow-up is recommended. 2. Minimal blunting of the right lateral costophrenic angle. A trace effusion cannot be excluded. ACT 112: Negative or not required by law. Electronically signed by: Jimmy Maldonado M.D. 01/10/2025 12:34 PM
[2025-01-10 12:53] LABS: Alanine Aminotransferase 18.0 U/L (7-52); Albumin Globulin Ratio 0.9 (0.9-2); Alkaline Phosphatase 90.0 U/L (34-104); Anion Gap 7.0 (3-11); Bilirubin,Total 1.0 mg/dl (0.2-1.0); Blood Urea Nitrogen 11.0 mg/dl (6-23); Calcium 8.8 mg/dl (8.6-10.3); Carbon Dioxide 29.0 mmol/L (21-32); Chloride 104.0 mmol/L (98-107); Creatinine Clr Calc Pharmacy 81.9 ml/min; Globulin 3.1 gm/dl (2.5-4.0); Glucose 95.0 mg/dl (70-99(Fasting)); Potassium 2.8 mmol/L (3.5-5.1); Sodium 140.0 mmol/L (136-145); Total Protein 5.8 gm/dl (6.0-8.3)
[2025-01-10 13:07] LABS: Thyroid Stimulating Hormone 6.005 uIu/ml (0.300-4.500)
[2025-01-10] MEDS: OPTIRAY 320 125ml IV ONE (13:32)
--- NOTE | 2025-01-10 13:50 | CT Scan Report ---
CT SCAN OF THE BRAIN WITHOUT IV CONTRAST CLINICAL HISTORY: Acute change in mental status. Vomiting. COMPARISON STUDY: None TECHNIQUE: Unenhanced axial CT scan of the brain was performed from the vertex to the skull base. A dose lowering technique was utilized adhering to the principles of ALARA. CT DOSE: FINDINGS: No intra or extra-axial mass lesions are visualized. There is no CT evidence of acute cortical infarc tion. There is no midline shift. There is no acute hemorrhage. There are generalized atrophic changes . There are periventricular white matter hypodensities likely on a small vessel basis. There is mild ventricular prominence likely secondary to volume loss. No suspicious calvarial lesions are visualize d. IMPRESSION: No acute intracranial findings. ACT 112: Negative or not required by law. Electronically signed by: Jimmy Maldonado M.D. 01/10/2025 1:48 PM
--- NOTE | 2025-01-10 14:09 | CT Scan Report ---
ABDOMEN AND PELVIS CT WITH IV CONTRAST CT DOSE: 1218.05 mGy.cm HISTORY: Acutely altered mental status with nausea and vomiting AMS, vomiting, not urinating, pain TECHNIQUE: Multiaxial CT images of the abdomen and pelvis were performed following the IV administrat ion of 94 cc of Optiray, A dose lowering technique was utilized adhering to the principles of ALARA. COMPARISON STUDY: CTA chest 10/31/2022 FINDINGS: Pulmonary emboli noted within the main, lobar, segmental and subsegmental branches of the l eft lower and right middle lobes. No saddle pulmonary embolus is seen. Extensive coronary artery calc ifications. No thoracic aortic aneurysm. [id number] layering pleural effusions with dependent bibasilar consolidation/atelectasis. Enhancing 2.1 x 1.5 cm ovoid lesion lateral to the right pectora lis musculature on image 35 series 6 No pneumatosis or pneumoperitoneum. Unremarkable spleen, gallbladder and adrenal glands. 8 mm hypoden se pancreatic lesion on image 162 series 6 is nonspecific, however is of low clinical suspicion. Hepa tic steatosis. Subcapsular 3.9 cm hypodensity of the left hepatic lobe on image 114 series 6 favors f ocal fatty infiltration. Patent portal vein. Unremarkable kidneys. No hydronephrosis. Unremarkable urinary bladder. Hysterectomy. Atherosclerosis of the aorta with infrarenal ectasia. Fusiform dilation of the right common iliac artery, 2.2 cm. Dis nuris esophageal wall thickening. Moderate sized hiatal hernia. Colonic diverticulosis without acute di verticulitis. Normal appendix. Lower abdominal scattered air-fluid levels without bowel obstruction o r bowel wall thickening. Moderate-sized right hip joint effusion, likely on a degenerative basis. No acute fracture or destructive bone lesion identified. Avascular necrosis of the right femoral head wi th severe osteoarthritis. Numerous chronic appearing thoracolumbar compression deformities. IMPRESSION: 1. Bilateral pulmonary emboli with small to moderate pleural effusions and bibasilar atelectasis. 2. Enhancing 2.2 cm lesion within the right lower chest may represent an axillary tail breast mass ve rsus pathologic axillary lymph node. Mammographic workup and biopsy is needed. 3. No bowel obstruction or bowel wall thickening. 4. Colonic diverticulosis without acute diverticulitis. 5. Moderate-sized hiatal hernia. ACT 112: Positive. There are findings on this exam that require communication between the performing entity and the patient following Patient Test Result Information Act ([place] Act 112) guidelines. The above report was generated using voice recognition software. It may contain grammatical, syntax o r spelling errors. Electronically signed by: Gordon Moore M.D. 01/10/2025 2:07 PM
[2025-01-10] MEDS ORDERED: ENOXAPARIN 1 MG/KG SC SCH (14:15)
[2025-01-10] MEDS: POTASSIUM CHLORIDE CRTAB 20 MEQ TABCR PO STA (14:56)
[2025-01-10] MEDS: cefTRIAXone SODIUM 1,000 MG/50 ML BAG IV STA (14:58)
--- NOTE | 2025-01-10 15:08 | History & Physical Report ---
Date of Service January 10, 2025 Assessment & Plan (1) Bilateral pulmonary embolism: (2) Breast mass, right: (3) Hypokalemia: (4) Abnormal urinalysis: Plan This is an 84 year old female with past medical history of hypertension, saddle PE (2021), and hyperlipidemia who presented to the ED on 01/10/2025 for weakness. While in the ED she did have a CTAP that showed b/l PE and a 2.2cm lesion within right lower chest. Her head CT was negative. Her CBC was w/o leukocytosis or anemia. BMP showed K low at 2.8 but renal function stable. TSH was elevated at 6.005 with normal T4. Urinalysis was + for infection w/ a UC pending. She was given a dose of Rocephin and started on therapeutic Lovenox dosing. #Bilateral PE's likely secondary to limited mobility from weakness + possible underlying breast cancer. CTAP w/ b/l PE Continue Therapeutic Lovenox dosing O2 goal of 90%, prn available if needed. - currently endorses no SOB. Echo ordered, pending. Chest CTA set for 01/11 at 7am --> not done at time of admission secondary to absence of symptoms + already received contrast for CTAP #Right breast mass CTAP w/ 2.2cm right lower chest which may represent axillary tail breast mass vs pathologic axillary lymph node. Will re-eval on CTA set for 01/11 Dependent upon results, may require breast US + biopsy while inpatient vs outpatient. #Hypokalemia K low at 2.8 at time of admission, secondary to poor PO intake. s/p repletion repeat levels in AM + mag #Weakness Head CT negative Likely secondary to above. Urinalysis + for infection but given no WBC count & no symptoms defer further abx on admissions, did receive 1 dose of Rocephin. - plan to follow up on UC. TSH mildly elevated at 6 w/ normal free T4 --> defer to PCP for recheck in 4-6 weeks. If still abnormal could consider low dose of Synthroid. PT/OT consulted for weakness. #HTN - On Amlodipine & Lisinopril #HLD - statin DVT prophylaxis: Therapeutic Lovenox Code: full Case discussed w/ Dr. Saavedra at time of admission. Updated at bedside 01/10 History of Present Illness Primary Care Provider: Phyllis Oleary PA-C This is an 84 year old female with past medical history of hypertension, saddle PE (2021), and hyperlipidemia who presented to the ED on 01/10/2025 for weakness. Bria was seen and examined this afternoon with her . She reports that for the last month she has had ongoing weakness but this has significantly worsened over the last 24-48 hours. Her reports she also had a ground level fall at home and has had right shoulder pain since. She was using a daily aspirin at home for this that did help. She denies any shortness of breath or chest pain. She does report that it feels more difficult to take a deep breath. She denies any LE pain. States that she has had no appetite and reports she has lost weight but unable to specify how much. She denied any thrombosis in past but there is reports of anticoagulation visits in 2021 for a saddle PE in which she was on Warfarin for. She no longer takes this and hasn't since 2021. She reports she has not made much urine over the last 24 hours but when she did urinate she denied any dysuria, urgency/frequency, or hematuria. Reports no BM as well secondary to low appetite. While in the ED she did have a CTAP that showed b/l PE and a 2.2cm lesion within right lower chest. Her head CT was negative. Her CBC was w/o leukocytosis or anemia. BMP showed K low at 2.8 but renal function stable. TSH was elevated at 6.005 with normal T4. Urinalysis was + for infection w/ a UC pending. She was given a dose of Rocephin and started on therapeutic Lovenox dosing. Code discussion did take place and she does confirm that she is a full code. Allergies Allergy/AdvReac Type Severity Reaction Status Date / Time No Known Allergies Allergy Verified 10/31/22 20:30 Home Medications Medication Instructions Recorded Confirmed Type vitamins A,C,J-mjni-tacyiu 4,296 1 cap PO DAILY 07/30/21 10/31/22 History mcg-226 mg-90 mg capsule (PreserVision AREDS) atorvastatin 10 mg tablet 10 mg PO DAILY 08/08/21 10/31/22 History lisinopril 20 mg tablet 20 mg PO DAILY 08/08/21 10/31/22 History amlodipine 5 mg tablet 5 mg PO DAILY 10/31/22 10/31/22 History calcium 600 mg (as 1 tab PO DAILY 10/31/22 10/31/22 History carbonate)-vitamin D3 5 mcg (200 unit) tablet cholecalciferol (vitamin D3) 25 0 mcg PO DAILY 10/31/22 10/31/22 History mcg (1,000 unit) tablet krill oil 500 mg capsule 500 mg PO DAILY 10/31/22 10/31/22 History Past Med/Surg History Problem List (Updated 01/10/25 @ 15:17 by Marimar Sanchez PA-C) Abnormal urinalysis Hypokalemia Breast mass, right Bilateral pulmonary embolism Alcohol use Hypertension High cholesterol Pulmonary embolism (Chronic) DVT (deep venous thrombosis) (Acute) Medical History Admitted to intensive care unit Basal cell carcinoma High cholesterol Hypertension Surgical History H/O: hysterectomy Social History Smoking Status: Former smoker Second Hand Exposure: No; Do You Dip or Chew Tobacco: No; Hx Alcohol Use: Yes Alcohol type: hard liquor Hx Substance Use: No Preferred Language: Italian Communication Ability: Effective 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 Palpation of right breast did reveal a small nodule at base of breast near chest wall. Gastrointestinal (Abdomen): normal bowel sounds, soft, nontender, no h epatosplenomegaly Skin: no rashes, warm and dry Neurologic: PERRL, EOMI, accommodation nl, no face palsy, no dysarthria Psychiatric: A+Ox3, euthymic affect Results & Data Results & Data Vital Signs (Past 12 Hours) Vital Signs Temp Pulse Pulse Resp BP BP Pulse Ox 01/10/25 13:55 81 17 159/94 H 95 01/10/25 13:03 78 24 97 01/10/25 12:53 81 24 143/82 H 95 01/10/25 12:30 79 23 94 01/10/25 11:44 80 13 95 01/10/25 11:27 88 01/10/25 11:11 36.7 C 78 20 140/84 95 O2 Del Method 01/10/25 13:55 Room Air 01/10/25 13:03 Room Air 01/10/25 12:53 Room Air 01/10/25 12:30 Room Air 01/10/25 11:44 Room Air 01/10/25 11:27 01/10/25 11:11 Room Air Code Status & VTE Plan VTE Prophylaxis Plan VTE Prophylaxis will be ordered: Yes PG Care Time/CCT Total # of Minutes Spent Total Time Spent with Patient: Total time spent is greater than 50% in coordination of care (as documented) at patient's floor/unit and/or counseling patient: Coding Level of Care Code 86357 INT INP/OBS CARE 375MIN Diagnoses Bilateral pulmonary embolism I26.99 Breast mass, right N63.10 Hypokalemia E87.6 Abnormal urinalysis R82.90
[2025-01-10] MEDS: ENOXAPARIN INJ 60 MG/0.6 ML SYR SQ SCH (15:32)
--- NOTE | 2025-01-10 16:17 | Electrocardiogram Report ---
Test Reason : Blood Pressure : */* mmHG Vent. Rate : 62 BPM Atrial Rate : 62 BPM P-R Int : 128 ms QRS Dur : 94 ms QT Int : 406 ms P-R-T Axes : * -13 168 degrees QTcB Int : 412 ms Sinus rhythm with occasional Premature ventricular complexes possible Inferior infarct , age undetermined Nonspecific ST abnormality Abnormal ECG When compared with ECG of 31-Oct-2022 18:37, Premature ventricular complexes are now Present Nonspecific T wave abnormality now evident in Inferior leads Nonspecific T wave abnormality, worse in Lateral leads Confirmed by Rehan Galicia ([id number]) on 01/10/2025 4:17:06 PM Referred By: REFERRED SELF Confirmed By: Rehan Galicia
[2025-01-10] MEDS: POTASSIUM CHLORIDE CRTAB 20 MEQ TABCR PO SCH (16:21)
[2025-01-10] MEDS: SODIUM CHLORIDE 0.9% 1,000 ML IV SCH (16:26)
[2025-01-11 06:04] LABS: Hematocrit (blood only) 31.9 % (37.0-47.0); Hemoglobin 11.4 g/dl (12.0-16.0); Mean Corpuscular Hemoglobin 37.0 pg (25.0-34.0); Mean Corpuscular Volume 103.6 fL (80.0-100.0); Platelet Count 149 K/uL (130-400); RDW Standard Deviation 48.2 fL (36.4-46.3); Red Blood Count 3.08 M/uL (4.20-5.40); White Blood Count 7.99 K/ul (4.8-10.8)
[2025-01-11 06:23] LABS: Anion Gap 9.0 (3-11); Blood Urea Nitrogen 9.0 mg/dl (6-23); Calcium 8.2 mg/dl (8.6-10.3); Carbon Dioxide 24.0 mmol/L (21-32); Chloride 109.0 mmol/L (98-107); Creatinine Clr Calc Pharmacy 95.6 ml/min; Glucose 73.0 mg/dl (70-99(Fasting)); Magnesium 1.3 mg/dl (1.7-2.4); Potassium 3.2 mmol/L (3.5-5.1); Sodium 142.0 mmol/L (136-145)
[2025-01-11 06:32] LABS: INR 1.0 (0.9-1.1); Prothrombin Time 10.7 Seconds (9.0-12.0)
[2025-01-11] MEDS ORDERED: POTASSIUM PHOS 3 MMOL/1 ML INFUSION IV STA (08:06)
[2025-01-11] MEDS: OPTIRAY 320 125ml IV ONE (08:22)
[2025-01-11] MEDS ORDERED: CHOLECALCIFEROL 25 MCG (1000 UNITS) TAB PO SCH (09:00)
[2025-01-11] MEDS: MAGNESIUM SULFATE / D5W 1 GM/100 ML BAG IV SCH (09:16)
[2025-01-11] MEDS: POTASSIUM PHOSPHATE 6 MMOL in SODIUM CHLORIDE 0.9% 250 ML IV ONE (09:16)
[2025-01-11] MEDS: ATORVASTATIN 10 MG TAB PO SCH (09:21)
[2025-01-11] MEDS: CHOLECALCIFEROL 125 MCG (5,000 UNITS) TAB PO SCH (09:22)
--- NOTE | 2025-01-11 09:29 | CT Scan Report ---
CT angio chest w con CLINICAL HISTORY: b/l PE breast mass found on CTAP COMPARISON STUDY: CT scan abdomen pelvis performed 01/10/2025 FINDINGS: CT angiography was performed during intravenous administration of 112 cc of Optiray 320. There are coronary artery calcifications present. There is no significant pericardial effusion. There is no evidence of thoracic aortic aneurysm. Atheromatous plaque is visualized within the upper abdominal aorta is present the level of the renal arteries. There are bilateral pulmonary artery filling defects indicative of bilateral pulmonary emboli. There is a large crescentic filling defect within the left main pulmonary artery which appears adherent to the wall. This may indicate that this embolus is subacute. There is mild flattening of the ventricular septum suggesting mild strain. There are small to moderate bilateral pleural effusions. There is bilateral dependent lower lobe atelectasis. There are fractures of left sixth, seventh, eighth, ninth, 11th, and 12th ribs. There is no pneumotho rax. There is a low suspicion 3 mm solid right upper lobe perifissural nodule as visualized image of 98/27 7. There is a 4 mm solid peripheral nodule within the left major fissure as visualized on image #[address] 277. No destructive skeletal lesions are visualized. There is a nonspecific sclerotic lesion within the ri ght eighth rib posterior laterally. There is a 2 cm mass within the axillary tail of the right breast. There are no pathologically enlarged axillary mediastinal or hilar lymph nodes. IMPRESSION: 1. This study confirms the presence of bilateral pulmonary emboli. The appearance suggests these may be acute/subacute. Mild left ventricular strain cannot be excluded. 2. No evidence of thoracic aortic aneurysm or dissection 3. [id number] bilateral pleural effusions 4. No evidence of pathologic adenopathy 5. Multiple left-sided rib fractures 6. 2 cm right axillary tail breast mass ACT 112: Negative or not required by law. Electronically signed by: Jimmy Maldonado M.D. 01/11/2025 9:28 AM
--- NOTE | 2025-01-11 10:23 | XCELERA ---
[id number] \\[id number]
--- NOTE | 2025-01-11 11:21 | Hospitalist Progress Note ---
Date of Service January 11, 2025 Assessment & Plan (1) Bilateral pulmonary embolism: (2) Breast mass, right: (3) Hypokalemia: (4) Abnormal urinalysis: Plan This is an 84 year old female with past medical history of hypertension, saddle PE (2021), and hyperlipidemia who presented to the ED on 01/10/2025 for weakness. While in the ED she did have a CTAP that showed b/l PE and a 2.2cm lesion within right lower chest. Her head CT was negative. Her CBC was w/o leukocytosis or anemia. BMP showed K low at 2.8 but renal function stable. TSH was elevated at 6.005 with normal T4. Urinalysis was + for infection w/ a UC pending. She was given a dose of Rocephin and started on therapeutic Lovenox dosing. #Bilateral PE's likely secondary to limited mobility from weakness + possible underlying breast cancer. CTAP w/ b/l PE; Chest CTA confirmed b/l PE's. Continue Therapeutic Lovenox dosing, bridge to Warfarin started 01/11. Plan for 8mg dosing x 2 days followed by maintenance dose of 4mg dosing with goal INR range of 2-3. O2 goal of 90%, prn available if needed. - currently endorses no SOB. Echo --> LV systolic function normal. prolapse of posterior mitral leaflets. moderate mitral regurg. RV systolic pressure elevated at 30-40mmHg. #Right breast mass CTAP w/ 2.2cm right lower chest which may represent axillary tail breast mass vs pathologic axillary lymph node. Chest CTA consistent with 2cm breast mass. Defer outpatient for bx secondary to new b/l PE & need for anticoagulation. #Left Rib Fracture Chest CTA w/ rib fractures 6th- 12th ribs Incentive spirometry Tylenol prn for pain. Vit D level 40.2, continue supplementation. #Hypokalemia/hypomagnesia/hypophosphatemia K low at 3.2, Mag low at 1.3, Phos low at 2.4 s/p repletion of all 3. repeat levels in AM #UTI patient asymptomatic but UC + for E. Coli In setting of weakness will treat 3 days for uncomplicated UTI. Continue IV Rocephin through 01/12. #HTN - On Amlodipine & Lisinopril #HLD - statin DVT prophylaxis: Therapeutic Lovenox Code: full Admission and Anticipated Discharge Date Admission Date: January 10, 2025 Supervising Physician Co-Signing Physician Notes The patient was not seen by me. The chart was reviewed. Case discussed with PHILIP Bai. Agree with assessment and plan Subjective Bria was seen and examined this morning. She reports she is feeling well today. denies any complaints. Physical Exam Constitutional: WD/WN, vitals as above Eyes: PERRL, conjunctivae normal, anicteric sclerae Respiratory: normal respiratory effort, lungs clear to auscultation Cardiovascular: RRR, no murmur, no edema Gastrointestinal (Abdomen): normal bowel sounds, soft, nontender, no hepatosplenomegaly Skin: no rashes, warm and dry Neurologic: PERRL, EOMI, accommodation nl, no face palsy, no dysarthria Psychiatric: A+Ox3, euthymic affect Results & Data Results & Data Vital Signs (Past 12 Hours) Vital Signs Temp Pulse Pulse Resp BP Pulse Ox O2 Del Method 01/11/25 11:20 36.4 C L 73 18 127/72 96 Room Air 01/11/25 07:38 77 01/11/25 07:25 36.5 C 75 19 153/75 H 93 Room Air 01/11/25 02:54 36.8 C 76 16 136/89 94 Room Air PG Care Time/CCT Total # of Minutes Spent Total Time Spent with Patient: Total time spent is greater than 50% in coordination of care (as documented) at patient's floor/unit and/or counseling patient: Coding Level of Care Code 58725 SUB INP/OBS CARE 3/50MIN Diagnoses Bilateral pulmonary embolism I26.99 Breast mass, right N63.10 Hypokalemia E87.6 Abnormal urinalysis R82.90
[2025-01-11] MEDS: WARFARIN SOD 4 MG TAB PO SCH (17:07)
[2025-01-11] MEDS: cefTRIAXone SODIUM 1,000 MG/50 ML BAG IV SCH (17:58)
[2025-01-12 05:44] LABS: Hematocrit (blood only) 30.9 % (37.0-47.0); Hemoglobin 11.0 g/dl (12.0-16.0); Mean Corpuscular Hemoglobin 36.8 pg (25.0-34.0); Mean Corpuscular Volume 103.3 fL (80.0-100.0); Platelet Count 148 K/uL (130-400); RDW Standard Deviation 48.5 fL (36.4-46.3); Red Blood Count 2.99 M/uL (4.20-5.40); White Blood Count 7.90 K/ul (4.8-10.8)
[2025-01-12 06:01] LABS: Anion Gap 5.0 (3-11); Blood Urea Nitrogen 9.0 mg/dl (6-23); Calcium 8.1 mg/dl (8.6-10.3); Carbon Dioxide 25.0 mmol/L (21-32); Chloride 107.0 mmol/L (98-107); Creatinine Clr Calc Pharmacy 76.0 ml/min; Glucose 111.0 mg/dl (70-99(Fasting)); Magnesium 1.8 mg/dl (1.7-2.4); Potassium 3.1 mmol/L (3.5-5.1); Sodium 137.0 mmol/L (136-145)
[2025-01-12 06:10] LABS: INR 1.1 (0.9-1.1); Prothrombin Time 11.6 Seconds (9.0-12.0)
[2025-01-12 07:33] VITALS: RESP 19; TEMP 97.9
[2025-01-12] MEDS: ACETAMINOPHEN 500 MG TAB PO PRN (08:01)
[2025-01-12] MEDS ORDERED: POTASSIUM PHOS 3 MMOL/1 ML INFUSION IV STA (08:13)
[2025-01-12] MEDS: POTASSIUM PHOSPHATE 15 MMOL in SODIUM CHLORIDE 0.9% 250 ML IV ONE (09:15)
[2025-01-12 11:18] VITALS: BP 105/61; O2SAT 98
--- NOTE | 2025-01-12 13:24 | Hospitalist Progress Note ---
Date of Service January 12, 2025 Assessment & Plan (1) Bilateral pulmonary embolism: (2) Breast mass, right: (3) Hypokalemia: (4) Abnormal urinalysis: Plan This is an 84 year old female with past medical history of hypertension, saddle PE (2021), and hyperlipidemia who presented to the ED on 01/10/2025 for weakness. While in the ED she did have a CTAP that showed b/l PE and a 2.2cm lesion within right lower chest. Her head CT was negative. Her CBC was w/o leukocytosis or anemia. BMP showed K low at 2.8 but renal function stable. TSH was elevated at 6.005 with normal T4. Urinalysis was + for infection w/ a UC pending. She was given a dose of Rocephin and started on therapeutic Lovenox dosing. #Bilateral PE's likely secondary to limited mobility from weakness + possible underlying breast cancer. CTAP w/ b/l PE; Chest CTA confirmed b/l PE's. Continue Therapeutic Lovenox dosing, bridge to Warfarin started 01/11. Plan for 8mg dosing x 2 days followed by maintenance dose of 4mg dosing with goal INR range of 2-3. O2 goal of 90%, prn available if needed. - currently endorses no SOB. Echo --> LV systolic function normal. prolapse of posterior mitral leaflets. moderate mitral regurg. RV systolic pressure elevated at 30-40mmHg. #Right breast mass CTAP w/ 2.2cm right lower chest which may represent axillary tail breast mass vs pathologic axillary lymph node. Chest CTA consistent with 2cm breast mass. Defer outpatient for bx secondary to new b/l PE & need for anticoagulation. #Left Rib Fracture Chest CTA w/ rib fractures 6th- 12th ribs Incentive spirometry Tylenol prn for pain. Vit D level 40.2, continue supplementation. #Hypokalemia/hypomagnesia/hypophosphatemia K low at 3.2, Mag low at 1.3, Phos low at 2.4 s/p repletion of all 3. repeat levels in AM #UTI patient asymptomatic but UC + for E. Coli In setting of weakness will treat 3 days for uncomplicated UTI. Continue IV Rocephin through 01/12. #HTN - On Amlodipine & Lisinopril #HLD - statin DVT prophylaxis: Therapeutic Lovenox Code: full Admission and Anticipated Discharge Date Admission Date: January 10, 2025 Results & Data Results & Data Vital Signs (Past 12 Hours) Vital Signs Temp Pulse Pulse Resp BP Pulse Ox O2 Del Method 01/12/25 11:17 36.6 C 84 19 105/61 98 Room Air 01/12/25 07:43 80 01/12/25 07:32 36.6 C 72 19 106/62 97 Room Air 01/12/25 03:16 37.0 C 74 18 138/75 91 Room Air PG Care Time/CCT Total # of Minutes Spent Total Time Spent with Patient: Total time spent is greater than 50% in coordination of care (as documented) at patient's floor/unit and/or counseling patient: Coding Diagnoses Bilateral pulmonary embolism I26.99 Breast mass, right N63.10 Hypokalemia E87.6 Abnormal urinalysis R82.90
--- NOTE | 2025-01-12 13:50 | Discharge Summary ---
Discharge Summary Date of Service January 12, 2025 Principal Dx & Hospital Course #1 = Principal Diagnosis (1) Bilateral pulmonary embolism: (2) Breast mass, right: (3) Hypokalemia: (4) Abnormal urinalysis: Plan This is an 84 year old female with past medical history of hypertension, saddle PE (2021), and hyperlipidemia who presented to the ED on 01/10/2025 for weakness. #Bilateral PE's likely secondary to limited mobility from weakness + possible underlying breast cancer. CTAP w/ b/l PE; Chest CTA confirmed b/l PE's. Continue Therapeutic Lovenox dosing, bridge to Warfarin started 01/11. s/p 8mg Warfarin dosing x 2 --> transition to 4mg Warfarin daily dosing at dc with goal INR range of 2-3. --> recommend daily to every other day INR checks while @ rehab. Echo --> LV systolic function normal. prolapse of posterior mitral leaflets. moderate mitral regurg. RV systolic pressure elevated at 30-40mmHg. #Right breast mass CTAP w/ 2.2cm right lower chest which may represent axillary tail breast mass vs pathologic axillary lymph node. Chest CTA consistent with 2cm breast mass. Defer outpatient for bx secondary to new b/l PE & need for anticoagulation. --> follow up with PCP regarding this. #Left Rib Fracture Chest CTA w/ rib fractures 6th- 12th ribs Incentive spirometry Tylenol prn for pain. Vit D level 40.2, continue supplementation. #Hypokalemia/hypomagnesia/hypophosphatemia K low at 3.1, Mag now WNL, Phos mildly low at 2.3 s/p repletion of all K + phos prior to dc. Recommend follow up of electrolyte levels @ rehab. #UTI patient asymptomatic but UC + for E. Coli IV Rocephin x 2. Defer further abx on dc secondary to no urinary symptoms. #HTN - On Amlodipine & Lisinopril #HLD - statin Discharged to [facility] 01/12. Admission HPI Per Admitting Provider This is an 84 year old female with past medical history of hypertension, saddle PE (2021), and hyperlipidemia who presented to the ED on 01/10/2025 for weakness. Bria was seen and examined this afternoon with her . She reports that for the last month she has had ongoing weakness but this has significantly worsened over the last 24-48 hours. Her reports she also had a ground level fall at home and has had right shoulder pain since. She was using a daily aspirin at home for this that did help. She denies any shortness of breath or chest pain. She does report that it feels more difficult to take a deep breath. She denies any LE pain. States that she has had no appetite and reports she has lost weight but unable to specify how much. She denied any thrombosis in past but there is reports of anticoagulation visits in 2021 for a saddle PE in which she was on Warfarin for. She no longer takes this and hasn't since 2021. She reports she has not made much urine over the last 24 hours but when she did urinate she denied any dysuria, urgency/frequency, or hematuria. Reports no BM as well secondary to low appetite. While in the ED she did have a CTAP that showed b/l PE and a 2.2cm lesion within right lower chest. Her head CT was negative. Her CBC was w/o leukocytosis or anemia. BMP showed K low at 2.8 but renal function stable. TSH was elevated at 6.005 with normal T4. Urinalysis was + for infection w/ a UC pending. She was given a dose of Rocephin and started on therapeutic Lovenox dosing. Code discussion did take place and she does confirm that she is a full code. Discharge Exam Constitutional WD/WN, vitals as above Eyes PERRL, conjunctivae normal, anicteric sclerae Respiratory normal respiratory effort, lungs clear to auscultation Cardiovascular RRR, no murmur, no edema Skin no rashes, warm and dry Neurologic PERRL, EOMI, accommodation nl, no face palsy, no dysarthria Psychiatric A+Ox3, euthymic affect Discharge Plan Discharge Items Patient Disposition: Transfer Inpatient Rehab Fac Reason For Visit: WEAKNESS Discharge Diagnosis: bilateral pulmonary emboli Condition on Discharge: Serious Activity: Resume your previous activity Non-emergency contact: Primary Care Provider Call non-emergency contact if: you have any medication questions and your symptoms worsen Follow-up/Referrals: Phyllis Oleary PA-C [Primary Care Provider] - Diet: Regular Addtl Attending Provider Instructions: Mrs. Guidry, You were recently hospitalized for ongoing weakness you were found to have bilateral pulmonary emboli and a lesion in your right breast. You were treated with anticoagulation for your blood clots. You are going to rehab to get stronger prior to returning home. Upon discharge: Lovenox 50mg every 12 hours will be continued until the INR reaches 2-3. It is currently 1.1. Your INR should be checked on a daily basis until the INR reaches therapeutic range - this can be done at [facility]. You received Warfarin 8mg x 2 doses. Tomorrow, 01/13 should start Warfarin 4mg dosing. You will need to follow up with your PCP upon discharge to arrange for further workup of the lesion in your right breast. Your PCP will also need to keep an eye on your electrolytes. These were replenished while you were here. They are mildly low at discharge but [facility] can give you additional if needed. The remainder of your medications may be resumed. Best of luck! Marimar Sanchze PA-C Pending Studies at Discharge: No Stand-Alone Forms: My [facility] Skilled Items Patient informed of condition?: Yes DNR: No Discharge Level of Care: Acute rehab Communicable Disease: No Discharge Prognosis: Stable Lines: None Urinary Catheter: No Medications and DC Order Prescriptions: New acetaminophen [Tylenol Extra Strength] 500 mg Tablet 1,000 mg PO Q8H PRN (Reason: pain) Qty: 30 0RF enoxaparin 60 mg/0.6 mL Syringe 50 mg subcut Q12H Qty: 6 0RF warfarin 4 mg tablet 4 mg PO DAILY Qty: 30 0RF Continued lisinopril 20 mg tablet 20 mg PO DAILY atorvastatin 10 mg tablet 10 mg PO DAILY PreserVision AREDS [id number]-[id number]-casb capsule 1 cap PO DAILY amlodipine 5 mg tablet 5 mg PO DAILY cholecalciferol (vitamin D3) 25 mcg (1,000 unit) Tablet 25 mcg PO DAILY calcium carbonate-vitamin D3 600 mg-5 mcg (200 unit) Tablet 1 tab PO DAILY krill oil 500 mg Capsule 500 mg PO DAILY Discharge Orders: Discharge Order (Routine); Ordered 01/12/25 Ordered By: Marimar Sanchez Admission Data Admit Date/Time: 01/10/25 14:56 Attending Provider: Jan Helms Admit Provider: Julio Saavedra Primary Care Provider: Phyllis Oleary Other Providers: Julio Saavedra; [facility] Other Interventions: Discharge Summary Assessment (RN) Last Done: 01/12/25 13:49 Hospital Stay Data Consultations 01/10/25 14:17 ED Decision to Admit Stat Diagnostic Imagining Performed 01/10/25 11:50 CT abd pelvis IV con only Stat CT head/brain wo con Stat 01/11/25 07:00 CTA chest w con [CT angio chest w con] Routine Pending Results Patient Have Any Pending Studies at Discharge: No Discharge Instructions Given to Patient (Per Discharging Provider) Mrs. Guidry, Raghav were recently hospitalized for ongoing weakness you were found to have bilateral pulmonary emboli and a lesion in your right breast. You were treated with anticoagulation for your blood clots. You are going to rehab to get stronger prior to returning home. Upon discharge: Lovenox 50mg every 12 hours will be continued until the INR reaches 2-3. It is currently 1.1. Your INR should be checked on a daily basis until the INR reaches therapeutic range - this can be done at [facility]. You received Warfarin 8mg x 2 doses. Tomorrow, 01/13 should start Warfarin 4mg dosing. You will need to follow up with your PCP upon discharge to arrange for further workup of the lesion in your right breast. Your PCP will also need to keep an eye on your electrolytes. These were replenished while you were here. They are mildly low at discharge but [facility] can give you additional if needed. The remainder of your medications may be resumed. Best of luck! Marimar Sanchez PA-C Supervising Physician Co-Signing Physician Notes The patient was not seen by me. The chart was reviewed. Case discussed with PHILIP Bai. Agree with assessment and plan Total Time Total Time Spent Total Time Spent (In Minutes): 45 Total Time Includes: Examination of the Patient, Discharge Planning, Medication Reconciliation and Other Coding Level of Care Code 83484 INP/OBS DISCH >30 MIN Diagnoses Bilateral pulmonary embolism I26.99 Breast mass, right N63.10 Hypokalemia E87.6 Abnormal urinalysis R82.90
[2025-01-12] MEDS: WARFARIN SOD 4 MG TAB PO ONE (14:04)
[2025-01-12 15:07] VITALS: PULSE 83
== END 2025-01-12 16:12 | DRG 176 ==
LOC: SUATTDRO → ED 11:00 → SUATTDRO 14:56 → 4W 14:56

== ENCOUNTER 2025-04-09 17:09 | Inpatient (IN) ==
[2025-04-09] MEDS: RAPID SEQUENCE INDUCTION BAG ONE (17:41)
[2025-04-09] MEDS: SODIUM CHLORIDE 0.9% 1,000 ML IV SCH (17:41)
[2025-04-09] MEDS: NOREPINEPHRINE/D5W 4 MG/250 ML IV ONE (17:41)
[2025-04-09] MEDS: LORazepam 1 MG/1 ML SYR ED Inj Use ONE (17:41)
[2025-04-09 17:54] LABS: Hematocrit (blood only) 23.9 % (37.0-47.0); Hemoglobin 7.6 g/dL (12.0-16.0); Mean Corpuscular Hemoglobin 35.8 pg (25.0-34.0); Mean Corpuscular Volume 112.7 fL (80.0-100.0); Platelet Count 163 K/uL (130-400); RDW Standard Deviation 62.5 fL (36.4-46.3); Red Blood Count 2.12 M/uL (4.20-5.40); White Blood Count 12.48 K/ul (4.8-10.8)
[2025-04-09 18:00] VITALS: TEMP 96.8
[2025-04-09 18:10] LABS: Anion Gap 24.0 (3-11); Blood Urea Nitrogen 33.0 mg/dl (6-23); Calcium 7.6 mg/dl (8.6-10.3); Carbon Dioxide 10.0 mmol/L (21-32); Chloride 111.0 mmol/L (98-107); Creatinine Clr Calc Pharmacy 43.6 ml/min; Glucose 87.0 mg/dl (70-99(Fasting)); Potassium 3.7 mmol/L (3.5-5.1); Sodium 145.0 mmol/L (136-145)
--- NOTE | 2025-04-09 18:19 | Emergency Department Note ---
Impression & Plan Acute hypotension, Seizure, Altered mental status, Comfort measures only status ED Provider Note Diagnosis: Hypoxia, altered mental status, seizure, hypotension, comfort measures only, supratherapeutic INR Disposition: Admission CHIEF COMPLAINT: Fall HPI: Patient is a 84-year-old female on warfarin presenting after fall at home. Patient was activated as a trauma alert. Patient had seizure and route to the hospital for EMS. Patient had unequal pupils. Patient had skin tears throughout the body. Patient was not able to have IV access. EMS was not able to find a blood pressure. Patient hypoxic. Patient had BVM rescue breaths performed upon arrival. 2 mechanical blood pressures were attempted which did not give any readings. Nursing staff tried multiple times for manual reads and finally got a systolic of 60. PAST MEDICAL HISTORY: See Below PAST SURGICAL HISTORY: See Below SOCIAL HISTORY: See Below HOME MEDICATIONS: See Below ALLERGIES: See Below VITALS: See Below Airway Breathing equal but diminished bilaterally Circulation no pulse in right lower extremity weak thready pulses throughout Cervical collar not placed due to patient's comfort measures only status Secondary Survey: GENERAL: Severe distress EYE EXAM: Normal conjunctiva. OROPHARYNX: Moist mucus membranes. Grossly normal dentition. NECK: Supple, LUNGS: Clear to auscultation. Normal chest wall mechanics. HEART: NSR ABDOMEN: Abdomen soft, nondistended BACK: No CVA TTP. SKIN: No rashes and no bruising. UPPER EXTREMITIES: Upper extremities are grossly normal LOWER EXTREMITIES: Grossly normal, no edema. NEURO EXAM: Patient not responding upon initial assessment moves all fours to sternal rub PSYCH: Not responding due to clinical condition MEDICAL DECISION MAKING: History obtained from: EMS/ ER Course: Patient is a 84-year-old female on warfarin presenting after fall at home. Patient was activated as a trauma alert. Patient had seizure and route to the hospital for EMS. Patient had unequal pupils. Patient had skin tears throughout the body. Patient was not able to have IV access. EMS was not able to find a blood pressure. Patient hypoxic. Patient had BVM rescue breaths performed upon arrival. 2 mechanical blood pressures were attempted which did not give any readings. Nursing staff tried multiple times for manual reads and finally got a systolic of 60. Patient was bolused 2 L of normal saline. Patient's arrived as we are getting ready to potentially intubate and place central line. I discussed with him her current situation and her current condition. He did not want to have her placed on a ventilator or any procedures done. He wanted her to become comfort measures only. He understood this meant that she may pass away from this. At 1815 patient's asked me to perform CT scans of the head due to her briefly able to make a couple words. He would still not like to have her intubated or pressors or central line at this time but would like to have further information what a CT scan of her head to make sure is making the right decision. CT scan of the head shows no intracranial hemorrhage no large vessel occlusions. Patient's x-ray of the hip is negative for acute fracture. Discussion was again had with the patient's about full treatment versus comfort measures only. He continues to wish that she just be made comfortable does not wish for intubation to be performed or central line to be placed or vasopressors to be used. Patient's case discussed with hospital service who accepts patient for further treatment evaluation Labs (independently interpreted) are significant for: Supratherapeutic INR, leukocytosis Imaging results (independently interpreted): X-ray hip negative for acute fracture Medications given: Normal saline bolus x 2 Consultants: Hospitalist Triage Nursing notes reviewed and agree them. Vital Signs: reviewed and remarkable for: Hypoxia, hypotension Critical care 45 minutes does not include time for procedures Past Med/Surg History Problem List (Updated 04/10/25 @ 01:09 by Tai Castro DO) Comfort measures only status (Acute) Altered mental status (Acute) Seizure (Acute) Acute hypotension (Acute) Admission for end of life care Breast mass, right (Acute) Bilateral pulmonary embolism (Acute) Alcohol use Hypertension High cholesterol DVT (deep venous thrombosis) (Acute) Medical History (Updated 04/10/25 @ 01:09 by Tai Castro DO) Basal cell carcinoma Surgical History H/O: hysterectomy Social History Smoking Status: Former smoker Tobacco Type: Cigarettes Second Hand Exposure: No; Do You Dip or Chew Tobacco: No; Hx Alcohol Use: Yes Alcohol type: hard liquor Hx Substance Use: No Preferred Language: Tristanian Communication Ability: Effective Business Continuity Coordinator Required: No Beliefs That Will Affect Care: None marital status: Current Living Situation: Spouse Feels Safe at Home: Yes Assistive Devices: Cane and Walker Allergies Allergies Allergy/AdvReac Type Severity Reaction Status Date / Time No Known Allergies Allergy Verified 01/10/25 15:38 Home Meds Home Medications Medication Instructions Recorded Confirmed vitamins A,C,[id number]-rdpchh 4,296 1 cap PO DAILY 07/30/21 04/09/25 mcg-226 mg-90 mg capsule (PreserVision AREDS) atorvastatin 10 mg tablet 10 mg PO DAILY 08/08/21 04/09/25 lisinopril 20 mg tablet 20 mg PO DAILY 08/08/21 04/09/25 amlodipine 5 mg tablet 5 mg PO DAILY 10/31/22 04/09/25 calcium 600 mg (as 1 tab PO DAILY 10/31/22 04/09/25 carbonate)-vitamin D3 5 mcg (200 unit) tablet cholecalciferol (vitamin D3) 25 25 mcg PO DAILY 10/31/22 04/09/25 mcg (1,000 unit) tablet Previous Rx's Medication Instructions Recorded acetaminophen 500 mg tablet 1,000 mg (2 x 500 mg) PO Q8H PRN 01/12/25 (Tylenol Extra Strength) pain #30 tabs Results & Data (ED) Vital Signs Vital Signs - 24 hr 04/09/25 17:20 04/09/25 17:25 04/09/25 17:30 Temperature Pulse Rate 129 H 132 H 130 H Pulse Rate [Left Apical] Pulse Rate from SpO2 Sensor Pulse Strength [Carotid] Respiratory Rate Respiratory Effort / Characteristics Respiratory Pattern Blood Pressure 61/44 L 72/41 L Blood Pressure [Right Arm] Blood Pressure Mean 49 51 Blood Pressure Mean [Right Arm] Blood Pressure Position [Right Arm] Pulse Oximetry Oxygen Delivery Method Oxygen Flow Rate Sepsis Recent Fever Within 48 Hours No Sepsis New/Unexplained Change in Mental Status Yes Sepsis Action Taken by Nursing No Action Required 04/09/25 17:36 04/09/25 17:39 04/09/25 17:40 Temperature Pulse Rate 134 H 112 H Pulse Rate [Left Apical] Pulse Rate from SpO2 Sensor Pulse Strength [Carotid] Respiratory Rate Respiratory Effort / Characteristics Respiratory Pattern Blood Pressure 74/39 L 74/53 L Blood Pressure [Right Arm] Blood Pressure Mean 50 58 Blood Pressure Mean [Right Arm] Blood Pressure Position [Right Arm] Pulse Oximetry Oxygen Delivery Method Oxygen Flow Rate Sepsis Recent Fever Within 48 Hours Sepsis New/Unexplained Change in Mental Status Sepsis Action Taken by Nursing 04/09/25 17:42 04/09/25 17:42 04/09/25 17:46 Temperature 36 C L Pulse Rate 133 H 125 H Pulse Rate [Left Apical] Pulse Rate from SpO2 Sensor Pulse Strength [Carotid] Weak Respiratory Rate 14 Respiratory Effort / Characteristics Respiratory Pattern Blood Pressure 61/44 L 81/59 L Blood Pressure [Right Arm] Blood Pressure Mean 64 Blood Pressure Mean [Right Arm] Blood Pressure Position [Right Arm] Pulse Oximetry Oxygen Delivery Method Ambu-Bag Oxygen Flow Rate 15 Sepsis Recent Fever Within 48 Hours Sepsis New/Unexplained Change in Mental Status Sepsis Action Taken by Nursing 04/09/25 17:50 04/09/25 17:51 04/09/25 17:54 Temperature Pulse Rate 127 H 124 H Pulse Rate [Left Apical] Pulse Rate from SpO2 Sensor 68 Pulse Strength [Carotid] Respiratory Rate Respiratory Effort / Characteristics Respiratory Pattern Blood Pressure 82/50 L Blood Pressure [Right Arm] Blood Pressure Mean 66 Blood Pressure Mean [Right Arm] Blood Pressure Position [Right Arm] Pulse Oximetry 59 L 58 L Oxygen Delivery Method Non-rebreather Non-rebreather Oxygen Flow Rate 15 15 Sepsis Recent Fever Within 48 Hours Sepsis New/Unexplained Change in Mental Status Sepsis Action Taken by Nursing 04/09/25 17:55 04/09/25 18:00 04/09/25 18:03 Temperature Pulse Rate 118 H 119 H Pulse Rate [Left Apical] Pulse Rate from SpO2 Sensor Pulse Strength [Carotid] Respiratory Rate Respiratory Effort / Characteristics Respiratory Pattern Blood Pressure 92/66 L 79/44 L Blood Pressure [Right Arm] Blood Pressure Mean 74 55 Blood Pressure Mean [Right Arm] Blood Pressure Position [Right Arm] Pulse Oximetry 58 L 59 L Oxygen Delivery Method Oxygen Flow Rate Sepsis Recent Fever Within 48 Hours Sepsis New/Unexplained Change in Mental Status Sepsis Action Taken by Nursing 04/09/25 18:05 04/09/25 18:07 04/09/25 18:09 Temperature Pulse Rate 135 H Pulse Rate [Left Apical] 122 H Pulse Rate from SpO2 Sensor Pulse Strength [Carotid] Respiratory Rate 24 Respiratory Effort / Characteristics Labored Moaning Short of Breath Respiratory Pattern Regular Blood Pressure 77/50 L Blood Pressure [Right Arm] 78/41 L Blood Pressure Mean 58 Blood Pressure Mean [Right Arm] 53 Blood Pressure Position [Right Arm] Pulse Oximetry 95 62 L Oxygen Delivery Method Non-rebreather Non-rebreather Oxygen Flow Rate 15 15 Sepsis Recent Fever Within 48 Hours Sepsis New/Unexplained Change in Mental Status Sepsis Action Taken by Nursing 04/09/25 18:10 04/09/25 18:12 04/09/25 18:16 Temperature Pulse Rate 120 H Pulse Rate [Left Apical] Pulse Rate from SpO2 Sensor Pulse Strength [Carotid] Respiratory Rate Respiratory Effort / Characteristics Respiratory Pattern Blood Pressure 78/41 L 63/37 L Blood Pressure [Right Arm] Blood Pressure Mean 52 40 Blood Pressure Mean [Right Arm] Blood Pressure Position [Right Arm] Pulse Oximetry 66 L Oxygen Delivery Method Non-rebreather Oxygen Flow Rate 15 Sepsis Recent Fever Within 48 Hours Sepsis New/Unexplained Change in Mental Status Sepsis Action Taken by Nursing 04/09/25 18:16 04/09/25 18:18 04/09/25 18:20 Temperature Pulse Rate 123 H Pulse Rate [Left Apical] Pulse Rate from SpO2 Sensor Pulse Strength [Carotid] Respiratory Rate Respiratory Effort / Characteristics Respiratory Pattern Blood Pressure 63/37 L 68/47 L Blood Pressure [Right Arm] Blood Pressure Mean 40 56 Blood Pressure Mean [Right Arm] Blood Pressure Position [Right Arm] Pulse Oximetry Oxygen Delivery Method Oxygen Flow Rate Sepsis Recent Fever Within 48 Hours Sepsis New/Unexplained Change in Mental Status Sepsis Action Taken by Nursing 04/09/25 18:21 04/09/25 18:30 04/09/25 18:33 Temperature Pulse Rate 120 H 130 H 126 H Pulse Rate [Left Apical] Pulse Rate from SpO2 Sensor Pulse Strength [Carotid] Respiratory Rate Respiratory Effort / Characteristics Respiratory Pattern Blood Pressure Blood Pressure [Right Arm] Blood Pressure Mean Blood Pressure Mean [Right Arm] Blood Pressure Position [Right Arm] Pulse Oximetry Oxygen Delivery Method Oxygen Flow Rate Sepsis Recent Fever Within 48 Hours Sepsis New/Unexplained Change in Mental Status Sepsis Action Taken by Nursing 04/09/25 18:34 04/09/25 18:54 04/09/25 18:56 Temperature Pulse Rate 129 H Pulse Rate [Left Apical] Pulse Rate from SpO2 Sensor Pulse Strength [Carotid] Respiratory Rate 27 H Respiratory Effort / Characteristics Respiratory Pattern Blood Pressure 111/61 57/33 L Blood Pressure [Right Arm] Blood Pressure Mean 80 43 Blood Pressure Mean [Right Arm] Blood Pressure Position [Right Arm] Pulse Oximetry Oxygen Delivery Method Oxygen Flow Rate Sepsis Recent Fever Within 48 Hours Sepsis New/Unexplained Change in Mental Status Sepsis Action Taken by Nursing 04/09/25 19:00 04/09/25 19:00 04/09/25 19:01 Temperature Pulse Rate 136 H Pulse Rate [Left Apical] 132 H Pulse Rate from SpO2 Sensor Pulse Strength [Carotid] Respiratory Rate 26 H 24 Respiratory Effort / Characteristics Short of Breath Respiratory Pattern Tachypnea Blood Pressure 62/44 L Blood Pressure [Right Arm] 62/44 L Blood Pressure Mean 49 Blood Pressure Mean [Right Arm] 50 Blood Pressure Position [Right Arm] Semi-fowlers Pulse Oximetry Oxygen Delivery Method Oxymask Oxygen Flow Rate 15 Sepsis Recent Fever Within 48 Hours Sepsis New/Unexplained Change in Mental Status Sepsis Action Taken by Nursing 04/09/25 19:40 Temperature Pulse Rate Pulse Rate [Left Apical] 123 H Pulse Rate from SpO2 Sensor Pulse Strength [Carotid] Respiratory Rate 24 Respiratory Effort / Characteristics Respiratory Pattern Blood Pressure Blood Pressure [Right Arm] Blood Pressure Mean Blood Pressure Mean [Right Arm] Blood Pressure Position [Right Arm] Pulse Oximetry Oxygen Delivery Method Non-rebreather Oxygen Flow Rate 15 Sepsis Recent Fever Within 48 Hours Sepsis New/Unexplained Change in Mental Status Sepsis Action Taken by Nursing Laboratory Data 04/09/25 17:35 04/09/25 17:35 Lab Results 04/09/25 04/09/25 Range/Units 17:35 18:29 WBC 12.48 H (4.8-10.8) K/ul RBC 2.12 L (4.20-5.40) M/uL Hgb 7.6 L (12.0-16.0) g/dL Hct 23.9 L (37.0-47.0) % MCV 112.7 H (80.0-100.0) fL MCH 35.8 H (25.0-34.0) pg MCHC 31.8 L (32.0-36.0) g/dL RDW Std Deviation 62.5 H (36.4-46.3) fL RDW Coeff of Dean 15.3 H (11.5-14.5) % Plt Count 163 (130-400) K/uL MPV 10.3 (9.4-12.4) fL Immature Gran % (Auto) 1.2 % Neut % (Auto) 54.4 % Lymph % (Auto) 41.3 % Hickman % (Auto) 2.6 % Eos % (Auto) 0.2 % Baso % (Auto) 0.3 % Neut # (Auto) 6.78 H (1.40-6.50) K/uL Lymph # (Auto) 5.16 H (1.20-3.40) K/uL Hickman # (Auto) 0.32 (0.11-0.59) K/uL Eos # (Auto) 0.03 (0.00-0.50) K/uL Baso # (Auto) 0.04 (0.00-0.20) K/uL Immature Gran # (Auto) 0.15 (0.01-0.20) K/uL Macrocytosis Present Acanthocytes (Spur) 1+ PT > 90.0 H (9.0-12.0) Seconds INR > 9.7 H* (0.9-1.1) APTT 87 H* (21-31) Seconds PTT Ratio 3.2 Sodium 145 (136-145) mmol/L Potassium 3.7 (3.5-5.1) mmol/L Chloride 111 H (98-107) mmol/L Carbon Dioxide 10 L (21-32) mmol/L Anion Gap 24 H (3-11) BUN 33 H (6-23) mg/dl Creatinine 0.83 (0.6-1.2) mg/dl Est Cr Clr Drug Dosing 43.6 ml/min eGFR 69.47 BUN/Creatinine Ratio 39.8 H (10-20) Glucose 87 (70-99(Fasting)) mg/dl Calcium 7.6 L (8.6-10.3) mg/dl Administered Medications Discontinued Medications Epinephrine HCl (Epinephrine 1.5" Ndl 0.1 Mg/Ml Syr) Confirm Administered Dose 1 mg IV .STK-MED ONE Stop: 04/09/25 17:29 Last Admin: 04/09/25 17:41 Dose: Not Given Documented By: [facility] Sodium Chloride (Nss) 1,000 mls @ 999 mls/hr IV .Q1H1M RACH Stop: 04/09/25 19:45 Last Infusion: 04/09/25 18:47 Dose: Infused Documented By: [facility] Admin: 04/09/25 18:15 Dose: 999 mls/hr Documented By: [facility] Infusion: 04/09/25 18:15 Dose: Infused Documented By: [facility] Admin: 04/09/25 17:41 Dose: 999 mls/hr Documented By: BORA Ioversol (Optiray 320 125ml) 118 ml IV ONCE ONE Stop: 04/09/25 18:45 Last Admin: 04/09/25 18:45 Dose: 118 ml Documented By: MALCOM Lorazepam (Lorazepam 1 Mg/1 Ml Syr Ed Inj Use) Confirm Administered Dose 2 mg .ROUTE .STK-MED ONE Stop: 04/09/25 17:10 Last Admin: 04/09/25 17:41 Dose: Not Given Documented By: BORA Miscellaneous (Rapid Sequence Induction Bag) Confirm Administered Dose 1 each N/A .STK-MED ONE Stop: 04/09/25 17:08 Last Admin: 04/09/25 17:41 Dose: Not Given Documented By: [facility] Norepinephrine Bitartrate (Norepinephrine/D5w 4 Mg/250 Ml) Confirm Administered Dose 4 mg IV .STK-MED ONE Stop: 04/09/25 17:26 Last Admin: 04/09/25 17:41 Dose: Not Given Documented By: ROGER Imaging Data Radiologist's Impression: Head CT 04/09/25 18:[address] without contrast CT angiogram of the neck CT angiogram of the brain with contrast Provided History: seizure Comparison: None Technique: HEAD CT: Using multidetector thin collimation helical acquisition technique, axial, coronal and sagittal CT images from the skull base to the vertex were obtained without intravenous contrast. HEAD and NECK CTA: During rapid bolus intravenous injection of nonionic contrast material, axial images were obtained using thin collimation multidetector helical technique from the base of the neck through the of vertex of the head. This CT angiogram data was reconstructed at thin intervals with mild overlap. 3D reconstructions were obtained. The axial source images, multiplanar reformations, 3D reconstructions in both maximum intensity projection display and volume rendered models were reviewed. Dose reduction techniques were achieved by using automatic exposure control and/or adjustment of mA and/or kV according to patient size and/or use of iterative reconstruction technique. Findings: Head CT: There is no intracranial hemorrhage, mass effect, or midline shift. Puri/white matter differentiation in both cerebral hemispheres is preserved. Ventricles are proportionate to the cerebral sulci. Moderate cerebral atrophy. Head CTA demonstrates no aneurysm or stenosis of the major intracranial arteries. Neck CTA demonstrates no stenosis of the major cervical arteries. Mild calcification of the carotid bulbs bilaterally without associated stenosis. The origins of the great vessels from the aortic arch are patent. No mass is noted within the visualized portions of the cervical soft tissues or lung apices. Impression: 1. Head CTA demonstrates no aneurysm or stenosis of the major intracranial arteries, 2. Neck CTA demonstrates no stenosis of the major cervical arteries. 3. No intracranial hemorrhage on the noncontrast head CT. Electronically signed by Rehan Garcia 04-09-2025 7:08 PM Head CTA 04/09/25 18:[address] without contrast CT angiogram of the neck CT angiogram of the brain with contrast Provided History: seizure Comparison: None Technique: HEAD CT: Using multidetector thin collimation helical acquisition technique, axial, coronal and sagittal CT images from the skull base to the vertex were obtained without intravenous contrast. HEAD and NECK CTA: During rapid bolus intravenous injection of nonionic contrast material, axial images were obtained using thin collimation multidetector helical technique from the base of the neck through the of vertex of the head. This CT angiogram data was reconstructed at thin intervals with mild overlap. 3D reconstructions were obtained. The axial source images, multiplanar reformations, 3D reconstructions in both maximum intensity projection display and volume rendered models were reviewed. Dose reduction techniques were achieved by using automatic exposure control and/or adjustment of mA and/or kV according to patient size and/or use of iterative reconstruction technique. Findings: Head CT: There is no intracranial hemorrhage, mass effect, or midline shift. Puri/white matter differentiation in both cerebral hemispheres is preserved. Ventricles are proportionate to the cerebral sulci. Moderate cerebral atrophy. Head CTA demonstrates no aneurysm or stenosis of the major intracranial arteries. Neck CTA demonstrates no stenosis of the major cervical arteries. Mild calcification of the carotid bulbs bilaterally without associated stenosis. The origins of the great vessels from the aortic arch are patent. No mass is noted within the visualized portions of the cervical soft tissues or lung apices. Impression: 1. Head CTA demonstrates no aneurysm or stenosis of the major intracranial arteries, 2. Neck CTA demonstrates no stenosis of the major cervical arteries. 3. No intracranial hemorrhage on the noncontrast head CT. Electronically signed by Rehan Garcia 04-09-2025 7:08 PM Neck CTA 04/09/25 18:[address] without contrast CT angiogram of the neck CT angiogram of the brain with contrast Provided History: seizure Comparison: None Technique: HEAD CT: Using multidetector thin collimation helical acquisition technique, axial, coronal and sagittal CT images from the skull base to the vertex were obtained without intravenous contrast. HEAD and NECK CTA: During rapid bolus intravenous injection of nonionic contrast material, axial images were obtained using thin collimation multidetector helical technique from the base of the neck through the of vertex of the head. This CT angiogram data was reconstructed at thin intervals with mild overlap. 3D reconstructions were obtained. The axial source images, multiplanar reformations, 3D reconstructions in both maximum intensity projection display and volume rendered models were reviewed. Dose reduction techniques were achieved by using automatic exposure control and/or adjustment of mA and/or kV according to patient size and/or use of iterative reconstruction technique. Findings: Head CT: There is no intracranial hemorrhage, mass effect, or midline shift. Puri/white matter differentiation in both cerebral hemispheres is preserved. Ventricles are proportionate to the cerebral sulci. Moderate cerebral atrophy. Head CTA demonstrates no aneurysm or stenosis of the major intracranial arteries. Neck CTA demonstrates no stenosis of the major cervical arteries. Mild calcification of the carotid bulbs bilaterally without associated stenosis. The origins of the great vessels from the aortic arch are patent. No mass is noted within the visualized portions of the cervical soft tissues or lung apices. Impression: 1. Head CTA demonstrates no aneurysm or stenosis of the major intracranial arteries, 2. Neck CTA demonstrates no stenosis of the major cervical arteries. 3. No intracranial hemorrhage on the noncontrast head CT. Electronically signed by Rehan Garcia 04-09-2025 7:08 PM Hip X-Ray 04/09/25 18:30 History: Pain Comparison: 04/05/2024 Findings: There is no acute fracture or dislocation. Alignment is anatomic. Severe right hip degenerative changes again seen. Bilateral acetabular osteophytes. Small osteophytes of the left femoral head. There is no joint effusion or significant soft tissue swelling. Impression: No acute bony abnormality of the pelvis or left hip. Electronically signed by Rehan Garcia 04-09-2025 7:52 PM Chest X-Ray 04/09/25 19:17 Chest radiograph, one view History: Chest pain Comparison: None Findings: Single AP view of the chest performed. No focal consolidation or pleural effusion. No pneumothorax. The cardiomediastinal silhouette is within normal limits. Normal pulmonary vascularity. No evidence for lymphadenopathy. No visualized bony or soft tissue abnormality. Impression: Normal chest radiograph Electronically signed by Rehan Garcia 04-09-2025 7:52 PM Pelvis X-Ray 04/09/25 19:21 History: Pain Comparison: 04/05/2024 Findings: There is no acute fracture or dislocation. Alignment is anatomic. Severe right hip degenerative changes again seen. Bilateral acetabular osteophytes. Small osteophytes of the left femoral head. There is no joint effusion or significant soft tissue swelling. Impression: No acute bony abnormality of the pelvis or left hip. Electronically signed by Rehan Garcia 04-09-2025 7:52 PM Discharge Plan Visit Data Chief Complaint: Trauma Stated Complaint: TRAUMA ED Provider: Tai aCstro Discharge Problem: Acute hypotension, Seizure, Altered mental status, Comfort measures only status Patient Disposition: Condition: Critical Discharge Instructions Interventions: ED Discharge Assessment Last Done: 04/09/25 20:47 Date/Time: 04/09/25 21:17
[2025-04-09] MEDS: OPTIRAY 320 125ml IV ONE (18:45)
[2025-04-09 18:58] LABS: Acanthocytes 1+; Immature Granulocytes # (auto) 0.15 K/uL (0.01-0.20); Immature Granulocytes % (auto) 1.2 %; Macrocytosis Present
[2025-04-09 19:04] VITALS: BP 62/44
--- NOTE | 2025-04-09 19:09 | CT Scan Report ---
Head CT without contrast CT angiogram of the neck CT angiogram of the brain with contrast Provided History: seizure Comparison: None Technique: HEAD CT: Using multidetector thin collimation helical acquisition technique, axial, coronal and sagittal CT images from the skull base to the vertex were obtained without intravenous contrast. HEAD and NECK CTA: During rapid bolus intravenous injection of nonionic contrast material, axial images were obtained using thin collimation multidetector helical technique from the base of the neck through the of vertex of the head. This CT angiogram data was reconstructed at thin intervals with mild overlap. 3D reconstructions were obtained. The axial source images, multiplanar reformations, 3D reconstructions in both maximum intensity projection display and volume rendered models were reviewed. Dose reduction techniques were achieved by using automatic exposure control and/or adjustment of mA and/or kV according to patient size and/or use of iterative reconstruction technique. Findings: Head CT: There is no intracranial hemorrhage, mass effect, or midline shift. Puri/white matter differentiation in both cerebral hemispheres is preserved. Ventricles are proportionate to the cerebral sulci. Moderate cerebral atrophy. Head CTA demonstrates no aneurysm or stenosis of the major intracranial arteries. Neck CTA demonstrates no stenosis of the major cervical arteries. Mild calcification of the carotid bulbs bilaterally without associated stenosis. The origins of the great vessels from the aortic arch are patent. No mass is noted within the visualized portions of the cervical soft tissues or lung apices. Impression: 1. Head CTA demonstrates no aneurysm or stenosis of the major intracranial arteries, 2. Neck CTA demonstrates no stenosis of the major cervical arteries. 3. No intracranial hemorrhage on the noncontrast head CT. Electronically signed by Rehan Garcia 04-09-2025 7:08 PM
[2025-04-09] MEDS ORDERED: GLYCOPYRROLATE 0.2 MG/ML VIAL IV PRN ×2 (19:56→20:46)
[2025-04-09] MEDS ORDERED: LORazepam 1 MG/1 ML SYR ED Inj Use IV PRN (19:56)
[2025-04-09] MEDS ORDERED: MoRPHine SULFATE 2 MG/ML CARP IV PRN ×2 (19:56→20:46)
[2025-04-09] MEDS ORDERED: ONDANSETRON INJ 2 MG/ML 2 ML VIAL IV PRN ×2 (19:56→20:46)
--- NOTE | 2025-04-09 19:56 | History & Physical Report ---
Date of Service April 09, 2025 Assessment & Plan (1) Admission for end of life care: Plan 84yo female with history of HTN, HLP, VTE on Coumadin anticoagulation presenting after a ground level fall at home. Patient with hypotension, hypoxia, seizure noted by EMS while en route to the ER. Labs and images as above. Patient with markedly elevated INR > 9.7 noted on labs. Imaging with no CVA or hemorrhage. is at bedside and reports that he wishes to pursue comfort measures. 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 Patient is minimally responsive at present. Her , Chauncey Guidry, is at bedside and provides the history. Patient has been in her usual state of health. She was complaining of some hip pain and some mild edema of the right ankle, otherwise no new issues. Patient felt some generalized weakness over the last day. This evening she was sitting with her and she needed to go to the bathroom. Her assisted her to the bathroom with a walker. She complained of some dizziness with ambulation. She fell to the ground - did not hit her head or lose consciousness. Her states that while she was on the floor she was responsive. He placed a pillow under her head and called EMS. Patient had a seizure en route to the hospital. Hypoxic and hypotensive. Upon arrival to the ER patient was receiving bag-mask ventilation. Systolic BP on arrival = 60 Patient did wake for a few moments and was able to speak a few words, however, has been largely unresponsive since. is at bedside and instructed ER attending that he would like to pursue comfort measures. In accordance with patient's previously stated wishes no intubation, CPR, central line, pressors or other aggressive measures. During my encounter was sitting at bedside. I confirmed with him that he desires Comfort Care for his . No additional issues at this time. ER Course: NSS x 2L Allergies Allergy/AdvReac Type Severity Reaction Status Date / Time No Known Allergies Allergy Verified 01/10/25 15:38 Home Medications Medication Instructions Recorded Confirmed Type vitamins A,C,B-[id number] 4,296 1 cap PO DAILY 07/30/21 04/09/25 History mcg-226 mg-90 mg capsule (PreserVision AREDS) atorvastatin 10 mg tablet 10 mg PO DAILY 08/08/21 04/09/25 History lisinopril 20 mg tablet 20 mg PO DAILY 08/08/21 04/09/25 History amlodipine 5 mg tablet 5 mg PO DAILY 10/31/22 04/09/25 History calcium 600 mg (as 1 tab PO DAILY 10/31/22 04/09/25 History carbonate)-vitamin D3 5 mcg (200 unit) tablet cholecalciferol (vitamin D3) 25 25 mcg PO DAILY 10/31/22 04/09/25 History mcg (1,000 unit) tablet acetaminophen 500 mg tablet 1,000 mg (2 x 500 mg) PO Q8H PRN 01/12/25 04/09/25 Rx (Tylenol Extra Strength) pain #30 tabs Past Med/Surg History Problem List (Updated 04/09/25 @ 20:21 by Bre Coburn DO) Admission for end of life care Breast mass, right (Acute) Bilateral pulmonary embolism (Acute) Alcohol use Hypertension High cholesterol DVT (deep venous thrombosis) (Acute) Medical History (Updated 04/09/25 @ 20:21 by Bre Coburn DO) Basal cell carcinoma Surgical History H/O: hysterectomy Social History Smoking Status: Former smoker Tobacco Type: Cigarettes Second Hand Exposure: No; Do You Dip or Chew Tobacco: No; Hx Alcohol Use: Yes Alcohol type: hard liquor Hx Substance Use: No Preferred Language: Citizen Of [place] Communication Ability: Effective 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: No Beliefs That Will Affect Care: None marital status: Current Living Situation: Spouse Feels Safe at Home: Yes Assistive Devices: Cane and Walker Review of Systems Review of Systems: Unobtainable due to reduced consciousness Physical Exam Physical Exam: General: patient unresponsive, agonal breathing with respiratory pauses, possible Biot's respiratory pattern Skin: scattered bruising, skin tears and lesions in various stages of healing HEENT: pupils irregular, non-reactive to light, anicteric sclera, conjunctiva without injection, external ear normal to inspection and nontender, nares patent , moist mucus membranes, dentition intact, no oropharyngeal lesions, neck supple, trachea midline, no LAD, no thyromegaly, no JVD Heart: +S1/S2, regular, tachycardic, Lungs: coarse breath sounds anteriorly, no rales/rhonchi/wheezes Abd: +BS, soft, ND, no masses/organomegaly/ascites Ext: warm, scattered skin lesions on bilateral LE, no edema Neuro: patient unresponsive, non-verbal at present, no withdrawal from painful stimuli, pupils irregular and non-reactive to light bilaterally Results & Data Results & Data Vital Signs (Past 12 Hours) Vital Signs Temp Pulse Pulse Resp BP BP Pulse Ox 04/09/25 19:40 123 H 24 04/09/25 19:01 62/44 L 04/09/25 19:00 132 H 24 62/44 L 04/09/25 19:00 136 H 26 H 04/09/25 18:56 57/33 L 04/09/25 18:54 129 H 27 H 04/09/25 18:34 111/61 04/09/25 18:33 126 H 04/09/25 18:30 130 H 04/09/25 18:21 120 H 04/09/25 18:20 68/47 L 04/09/25 18:18 123 H 04/09/25 18:16 63/37 L 04/09/25 18:16 63/37 L 04/09/25 18:12 120 H 66 L 04/09/25 18:10 78/41 L 04/09/25 18:09 135 H 62 L 04/09/25 18:07 122 H 24 78/41 L 95 04/09/25 18:05 77/50 L 04/09/25 18:03 119 H 59 L 04/09/25 18:00 118 H 79/44 L 58 L 04/09/25 17:55 92/66 L 04/09/25 17:54 124 H 58 L 04/09/25 17:51 127 H 59 L 04/09/25 17:50 82/50 L 04/09/25 17:46 81/59 L 04/09/25 17:42 125 H 04/09/25 17:42 36 C L 133 H 14 61/44 L 04/09/25 17:40 74/53 L 04/09/25 17:39 112 H 04/09/25 17:36 134 H 74/39 L 04/09/25 17:30 130 H 72/41 L 04/09/25 17:25 132 H 61/44 L 04/09/25 17:20 129 H O2 Del Method O2 Flow Rate 04/09/25 19:40 Non-rebreather 15 04/09/25 19:01 04/09/25 19:00 Oxymask 15 04/09/25 19:00 04/09/25 18:56 04/09/25 18:54 04/09/25 18:34 04/09/25 18:33 04/09/25 18:30 04/09/25 18:21 04/09/25 18:20 04/09/25 18:18 04/09/25 18:16 04/09/25 18:16 04/09/25 18:12 Non-rebreather 15 04/09/25 18:10 04/09/25 18:09 Non-rebreather 15 04/09/25 18:07 Non-rebreather 15 04/09/25 18:05 04/09/25 18:03 04/09/25 18:00 04/09/25 17:55 04/09/25 17:54 Non-rebreather 15 04/09/25 17:51 Non-rebreather 15 04/09/25 17:50 04/09/25 17:46 04/09/25 17:42 04/09/25 17:42 Ambu-Bag 15 04/09/25 17:40 04/09/25 17:39 04/09/25 17:36 04/09/25 17:30 04/09/25 17:25 04/09/25 17:20 Laboratory Results Laboratory Results WBC 12.48 K/ul (4.8-10.8) H 04/09/25 17:35 RBC 2.12 M/uL (4.20-5.40) L 04/09/25 17:35 Hgb 7.6 g/dL (12.0-16.0) L 04/09/25 17:35 Hct 23.9 % (37.0-47.0) L 04/09/25 17:35 MCV 112.7 fL (80.0-100.0) H 04/09/25 17:35 MCH 35.8 pg (25.0-34.0) H 04/09/25 17:35 MCHC 31.8 g/dL (32.0-36.0) L 04/09/25 17:35 RDW Std Deviation 62.5 fL (36.4-46.3) H 04/09/25 17:35 RDW Coeff of Dean 15.3 % (11.5-14.5) H 04/09/25 17:35 Plt Count 163 K/uL (130-400) 04/09/25 17:35 MPV 10.3 fL (9.4-12.4) 04/09/25 17:35 Immature Gran % (Auto) 1.2 % 04/09/25 17:35 Neut % (Auto) 54.4 % 04/09/25 17:35 Lymph % (Auto) 41.3 % 04/09/25 17:35 Coal % (Auto) 2.6 % 04/09/25 17:35 Eos % (Auto) 0.2 % 04/09/25 17:35 Baso % (Auto) 0.3 % 04/09/25 17:35 Neut # (Auto) 6.78 K/uL (1.40-6.50) H 04/09/25 17:35 Lymph # (Auto) 5.16 K/uL (1.20-3.40) H 04/09/25 17:35 Coal # (Auto) 0.32 K/uL (0.11-0.59) 04/09/25 17:35 Eos # (Auto) 0.03 K/uL (0.00-0.50) 04/09/25 17:35 Baso # (Auto) 0.04 K/uL (0.00-0.20) 04/09/25 17:35 Immature Gran # (Auto) 0.15 K/uL (0.01-0.20) 04/09/25 17:35 Macrocytosis Present 04/09/25 17:35 Acanthocytes (Spur) 1+ 04/09/25 17:35 PT > 90.0 Seconds (9.0-12.0) H 04/09/25 18:29 INR > 9.7 (0.9-1.1) H* 04/09/25 18:29 APTT 87 Seconds (21-31) H* 04/09/25 18:29 PTT Ratio 3.2 04/09/25 18:29 Sodium 145 mmol/L (136-145) 04/09/25 17:35 Potassium 3.7 mmol/L (3.5-5.1) 04/09/25 17:35 Chloride 111 mmol/L (98-107) H 04/09/25 17:35 Carbon Dioxide 10 mmol/L (21-32) L 04/09/25 17:35 Anion Gap 24 (3-11) H 04/09/25 17:35 BUN 33 mg/dl (6-23) H 04/09/25 17:35 Creatinine 0.83 mg/dl (0.6-1.2) 04/09/25 17:35 Est Cr Clr Drug Dosing 43.6 ml/min 04/09/25 17:35 eGFR 69.47 04/09/25 17:35 BUN/Creatinine Ratio 39.8 (10-20) H 04/09/25 17:35 Glucose 87 mg/dl (70-99(Fasting)) 04/09/25 17:35 Calcium 7.6 mg/dl (8.6-10.3) L 04/09/25 17:[address] 04/09/25 18:[address] without contrast CT angiogram of the neck CT angiogram of the brain with contrast Provided History: seizure Comparison: None Technique: HEAD CT: Using multidetector thin collimation helical acquisition technique, axial, coronal and sagittal CT images from the skull base to the vertex were obtained without intravenous contrast. HEAD and NECK CTA: During rapid bolus intravenous injection of nonionic contrast material, axial images were obtained using thin collimation multidetector helical technique from the base of the neck through the of vertex of the head. This CT angiogram data was reconstructed at thin intervals with mild overlap. 3D reconstructions were obtained. The axial source images, multiplanar reformations, 3D reconstructions in both maximum intensity projection display and volume rendered models were reviewed. Dose reduction techniques were achieved by using automatic exposure control and/or adjustment of mA and/or kV according to patient size and/or use of iterative reconstruction technique. Findings: Head CT: There is no intracranial hemorrhage, mass effect, or midline shift. Puri/white matter differentiation in both cerebral hemispheres is preserved. Ventricles are proportionate to the cerebral sulci. Moderate cerebral atrophy. Head CTA demonstrates no aneurysm or stenosis of the major intracranial arteries. Neck CTA demonstrates no stenosis of the major cervical arteries. Mild calcification of the carotid bulbs bilaterally without associated stenosis. The origins of the great vessels from the aortic arch are patent. No mass is noted within the visualized portions of the cervical soft tissues or lung apices. Impression: 1. Head CTA demonstrates no aneurysm or stenosis of the major intracranial arteries, 2. Neck CTA demonstrates no stenosis of the major cervical arteries. 3. No intracranial hemorrhage on the noncontrast head CT. Electronically signed by Rehan Garcia 04-09-2025 7:08 PM Head CTA 04/09/25 18:[address] without contrast CT angiogram of the neck CT angiogram of the brain with contrast Provided History: seizure Comparison: None Technique: HEAD CT: Using multidetector thin collimation helical acquisition technique, axial, coronal and sagittal CT images from the skull base to the vertex were obtained without intravenous contrast. HEAD and NECK CTA: During rapid bolus intravenous injection of nonionic contrast material, axial images were obtained using thin collimation multidetector helical technique from the base of the neck through the of vertex of the head. This CT angiogram data was reconstructed at thin intervals with mild overlap. 3D reconstructions were obtained. The axial source images, multiplanar reformations, 3D reconstructions in both maximum intensity projection display and volume rendered models were reviewed. Dose reduction techniques were achieved by using automatic exposure control and/or adjustment of mA and/or kV according to patient size and/or use of iterative reconstruction technique. Findings: Head CT: There is no intracranial hemorrhage, mass effect, or midline shift. Puri/white matter differentiation in both cerebral hemispheres is preserved. Ventricles are proportionate to the cerebral sulci. Moderate cerebral atrophy. Head CTA demonstrates no aneurysm or stenosis of the major intracranial arteries. Neck CTA demonstrates no stenosis of the major cervical arteries. Mild calcification of the carotid bulbs bilaterally without associated stenosis. The origins of the great vessels from the aortic arch are patent. No mass is noted within the visualized portions of the cervical soft tissues or lung apices. Impression: 1. Head CTA demonstrates no aneurysm or stenosis of the major intracranial arteries, 2. Neck CTA demonstrates no stenosis of the major cervical arteries. 3. No intracranial hemorrhage on the noncontrast head CT. Electronically signed by Rehan Garcia 04-09-2025 7:08 PM Neck CTA 04/09/25 18:[address] without contrast CT angiogram of the neck CT angiogram of the brain with contrast Provided History: seizure Comparison: None Technique: HEAD CT: Using multidetector thin collimation helical acquisition technique, axial, coronal and sagittal CT images from the skull base to the vertex were obtained without intravenous contrast. HEAD and NECK CTA: During rapid bolus intravenous injection of nonionic contrast material, axial images were obtained using thin collimation multidetector helical technique from the base of the neck through the of vertex of the head. This CT angiogram data was reconstructed at thin intervals with mild overlap. 3D reconstructions were obtained. The axial source images, multiplanar reformations, 3D reconstructions in both maximum intensity projection display and volume rendered models were reviewed. Dose reduction techniques were achieved by using automatic exposure control and/or adjustment of mA and/or kV according to patient size and/or use of iterative reconstruction technique. Findings: Head CT: There is no intracranial hemorrhage, mass effect, or midline shift. Puri/white matter differentiation in both cerebral hemispheres is preserved. Ventricles are proportionate to the cerebral sulci. Moderate cerebral atrophy. Head CTA demonstrates no aneurysm or stenosis of the major intracranial arteries. Neck CTA demonstrates no stenosis of the major cervical arteries. Mild calcification of the carotid bulbs bilaterally without associated stenosis. The origins of the great vessels from the aortic arch are patent. No mass is noted within the visualized portions of the cervical soft tissues or lung apices. Impression: 1. Head CTA demonstrates no aneurysm or stenosis of the major intracranial arteries, 2. Neck CTA demonstrates no stenosis of the major cervical arteries. 3. No intracranial hemorrhage on the noncontrast head CT. Electronically signed by Rehan Garcia 04-09-2025 7:08 PM Hip X-Ray 04/09/25 18:30 History: Pain Comparison: 04/05/2024 Findings: There is no acute fracture or dislocation. Alignment is anatomic. Severe right hip degenerative changes again seen. Bilateral acetabular osteophytes. Small osteophytes of the left femoral head. There is no joint effusion or significant soft tissue swelling. Impression: No acute bony abnormality of the pelvis or left hip. Electronically signed by Rehan Garcia 04-09-2025 7:52 PM Chest X-Ray 04/09/25 19:17 Chest radiograph, one view History: Chest pain Comparison: None Findings: Single AP view of the chest performed. No focal consolidation or pleural effusion. No pneumothorax. The cardiomediastinal silhouette is within normal limits. Normal pulmonary vascularity. No evidence for lymphadenopathy. No visualized bony or soft tissue abnormality. Impression: Normal chest radiograph Electronically signed by Rehan Garcia 04-09-2025 7:52 PM Pelvis X-Ray 04/09/25 19:21 History: Pain Comparison: 04/05/2024 Findings: There is no acute fracture or dislocation. Alignment is anatomic. Severe right hip degenerative changes again seen. Bilateral acetabular osteophytes. Small osteophytes of the left femoral head. There is no joint effusion or significant soft tissue swelling. Impression: No acute bony abnormality of the pelvis or left hip. Electronically signed by Rehan Garcia 04-09-2025 7:52 PM Code Status & VTE Plan VTE Prophylaxis Plan VTE Prophylaxis will be ordered: No PG Care Time/CCT Total # of Minutes Spent Total Time Spent with Patient: Total time spent is greater than 50% in coordination of care (as documented) at patient's floor/unit and/or counseling patient: Coding Level of Care Code 48167 INT INP/OBS CARE 2/55MIN Diagnoses Admission for end of life care Z51.5
--- NOTE | 2025-04-09 20:04 | XRay Report ---
History: Pain Comparison: 04/05/2024 Findings: There is no acute fracture or dislocation. Alignment is anatomic. Severe right hip degenerative changes again seen. Bilateral acetabular osteophytes. Small osteophytes of the left femoral head. There is no joint effusion or significant soft tissue swelling. Impression: No acute bony abnormality of the pelvis or left hip. Electronically signed by Rehan Garcia 04-09-2025 7:52 PM
--- NOTE | 2025-04-09 20:04 | XRay Report ---
Chest radiograph, one view History: Chest pain Comparison: None Findings: Single AP view of the chest performed. No focal consolidation or pleural effusion. No pneumothorax. The cardiomediastinal silhouette is within normal limits. Normal pulmonary vascularity. No evidence for lymphadenopathy. No visualized bony or soft tissue abnormality. Impression: Normal chest radiograph Electronically signed by Rehan Garcia 04-09-2025 7:52 PM
[2025-04-09 20:11] LABS: INR > 9.7 (0.9-1.1); Partial Thromboplastin Time 87 Seconds (21-31); Prothrombin Time > 90.0 Seconds (9.0-12.0)
[2025-04-09] MEDS ORDERED: LORazepam Inj 0.5 MG in SYRINGE 0.25 ML IV PRN (20:46)
[2025-04-09 21:28] VITALS: PULSE 0
--- NOTE | 2025-04-09 21:29 | Death Pronouncement Note ---
Date of Service April 09, 2025 Pronouncement Note Admission Date April 09, 2025 Date and Time of Date of : 04/09/25 Time of : 21:17 Preliminary Cause of (1) Admission for end of life care: Additional Comments: Patient with episode of fall prior to arrival. She had a seizure witnessed by EMS en route to the ER. Has been hypotensive, hypoxic, tachycardic. at bedside wishes to pursue comfort measures at this time. Summary Notified by nursing that patient apneic, no spontaneous heart tones. Patient examined at bedside. Without spontaneous heart tones, no respirations Pupils irregular, non-reactive to light bilaterally Corneal reflex No withdrawal from painful stimuli Still with cardiac rhythm present on monitor. Likely PEA Bedside ultrasound performed by ER attending revealed no cardiac activity Time of : 21:17 Additional Data Confirmation of : no pulse, no respirations, no heart sounds and pupils fixed and dilated Family: at bedside Attending physician: Bre Coburn, DO Was code activated?: No Autopsy requested?: No Coding Level of Care Code None Diagnoses Admission for end of life care Z51.5
--- NOTE | 2025-04-09 21:31 | Discharge Summary ---
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 Patient with hypotension, hypoxia, seizure noted by EMS while en route to the ER. Labs and images as above. Patient with markedly elevated INR > 9.7 noted on labs. Imaging with no CVA or hemorrhage. is at bedside and reports that he wishes to pursue comfort measures. 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 Patient is minimally responsive at present. Her , Chauncey Guidry, is at bedside and provides the history. Patient has been in her usual state of health. She was complaining of some hip pain and some mild edema of the right ankle, otherwise no new issues. Patient felt some generalized weakness over the last day. This evening she was sitting with her and she needed to go to the bathroom. Her assisted her to the bathroom with a walker. She complained of some dizziness with ambulation. She fell to the ground - did not hit her head or lose consciousness. Her states that while she was on the floor she was responsive. He placed a pillow under her head and called EMS. Patient had a seizure en route to the hospital. Hypoxic and hypotensive. Upon arrival to the ER patient was receiving bag-mask ventilation. Systolic BP on arrival = 60 Patient did wake for a few moments and was able to speak a few words, however, has been largely unresponsive since. is at bedside and instructed ER attending that he would like to pursue comfort measures. In accordance with patient's previously stated wishes no intu bation, CPR, central line, pressors or other aggressive measures. During my encounter was sitting at bedside. I confirmed with him that he desires Comfort Care for his . No additional issues at this time. ER Course: NSS x 2L Discharge Exam Patient with no spontaneous heart tones or respirations, no pulse, pupils fixed and dilated bilaterally, no withdrawal from painful stimuli Patient pronounced at 21:17 Discharge Plan Discharge Items Patient Disposition: Reason For Visit: UNRESPONSIVE, COMFORT CARE MEASURES Follow-up/Referrals: Phyllis Oleary PA-C [Primary Care Provider] - Medications and DC Order Prescriptions: No Action lisinopril 20 mg tablet 20 mg PO DAILY atorvastatin 10 mg tablet 10 mg PO DAILY PreserVision AREDS [id number] capsule 1 cap PO DAILY amlodipine 5 mg tablet 5 mg PO DAILY cholecalciferol (vitamin D3) 25 mcg (1,000 unit) Tablet 25 mcg PO DAILY calcium carbonate-vitamin D3 600 mg-5 mcg (200 unit) Tablet 1 tab PO DAILY acetaminophen [Tylenol Extra Strength] 500 mg Tablet 1,000 mg PO Q8H PRN (Reason: pain) Qty: 30 0RF Admission Data Admit Date/Time: 04/09/25 19:55 Attending Provider: Bre Coburn Admit Provider: Bre Coburn Primary Care Provider: Phyllis Oleary Other Providers: Bre Coburn; Anaya Street; Jovita Do Hospital Stay Data Consultations 04/09/25 19:34 ED Decision to Admit Stat 04/09/25 20:46 Consult Palliative Care Routine Diagnostic Imagining Performed 04/09/25 18:15 CT angio head w con Stat CT angio neck with con Stat CT head/brain wo con Stat Total Time Total Time Spent Total Time Spent (In Minutes): 30 minutes Coding Level of Care Code None Diagnoses Admission for end of life care Z51.5
[2025-04-09 21:45] VITALS: RESP 0; O2SAT 0
== END 2025-04-09 21:17 | disposition expired | DRG 206 ==
LOC: ED 17:09 → EDINP 19:55